=== PATIENT | male | born 1965 ===

== ENCOUNTER 2017-01-02 06:52 | Inpatient (IN) | payer OTHER ==
[2017-01-02] MEDS: PROPOFOL/EMULSION 100 ML IV SCH ×3 (10:10→23:11)
[2017-01-02] MEDS: fentaNYL/NACL 100 ML IV SCH ×2 (10:10→19:17)
[2017-01-02] MEDS ORDERED: PROPOFOL/EMULSION 1,000 MG/100 ML BOTTLE IV ONE (10:12)
[2017-01-02] MEDS ORDERED: fentanYL/NACL/100 ML BAG IV ONE (10:13)
--- NOTE | 2017-01-02 10:52 | SOAPPROG ---
SOAP Progress Note Assessment/Plan: Assessment: 51yo with intracranial bleed in need for georgie Plan: georgie placed to left radial artery no complications noted secured with suture and tape 01/02/17 10:48 Objective: Vital Signs Temp Pulse Resp BP Pulse Ox 37.2 C 69 14 102/66 97 01/02/17 10:33 01/02/17 10:33 01/02/17 10:33 01/02/17 10:33 01/02/17 10:33 01/01/17 01/02/17 01/03/17 05:59 05:59 05:59 Output Total 20 Balance -20 seen - Pending Discharge Pending Discharge Within 24 Hours: No Pending Discharge Within 48 Hours: No Physical Exam - Physical Exam General Appearance: obese EENT: other Neck: other Respiratory: other Cardiac/Chest: other ICD10 Worksheet Patient Problems: Problems Problem Status Onset Intracranial bleeding Acute - ICD10 Problem Qualifiers (1) Intracranial bleeding
[2017-01-02 11:05] LABS: BASE EXCESS -4.8 mEq/L (-2.5-2.5); BICARBONATE 21 mEq/L (22-26); MEASURED OXYGEN SATURATION 98 % (92-95); PCO2 42 mmHg (34-38); PO2 116 mmHg (65-75); TCO2 22 mEq/L (23-27)
[2017-01-02 11:08] LABS: % IMMATURE GRANULYOCYTES 0.8 % (0.0-1.1); ABSOLUTE IMMATURE GRANULOCYTES 0.15 10^3/uL (0.00-0.10); ADD DIFF? NO; ADD MORPH? NO; ADD SCAN? NO; ATYPICAL LYMPHOCYTE FLAG 0 (0-99); FRAGMENT RBC FLAG 0 (0-99); HEMATOCRIT 53.4 % (40.0-51.0); HEMOGLOBIN 18.9 g/dL (13.7-17.5); LEFT SHIFT FLG 0 (0-99); LIPEMIA HEMOLYSIS FLAG 90 (0-99); MEAN CELL HEMOGLOBIN 30.5 pg (27.9-34.1); MEAN CELL HEMOGLOBIN CONCENTR. 35.4 g/dL (32.4-36.7); MEAN CELL VOLUME 86.1 fL (81.5-99.8); MEAN PLATELET VOLUME 9.3 fL (8.7-11.7); PLATELET CLUMPS FLAG 0 (0-99); PLATELET COUNT 246 10^3/uL (150-400); RED CELL DISTRIBUTION WIDTH 13.7 % (11.5-15.2)
[2017-01-02 11:12] LABS: END TIDAL CO2 29
[2017-01-02 11:13] LABS: ASSIST CONTROL YES
[2017-01-02 11:14] LABS: O2 CONCENTRATIION 100 % (0-100); P/F RATIO 116 RATIO; TOTAL RATE 14
[2017-01-02 11:16] LABS: INR 1.01 (0.83-1.16); PROTIME(PATIENT) 13.2 SEC (12.0-15.0)
[2017-01-02 11:28] LABS: ALANINE AMINOTRANSFERASE 65 IU/L (21-72); ALBUMIN 3.8 g/dL (3.5-5.0); ALKALINE PHOSPHATASE 82 IU/L (38-126); ANION GAP 15 mEq/L (8-16); ASPARTATE AMINOTRANSFERASE 57 IU/L (17-59); BILIRUBIN,TOTAL 0.8 mg/dL (0.1-1.4); CALCIUM 9.3 mg/dL (8.5-10.4); CARBON DIOXIDE 19 mEq/l (22-31); CHLORIDE 108 mEq/L (97-110); CREATININE 1.7 mg/dL (0.7-1.3); GLOMERULAR FILTRATION RATE 42; GLUCOSE 151 mg/dL (70-100); POTASSIUM 4.7 mEq/L (3.5-5.2); SODIUM 142 mEq/L (134-144); TOTAL PROTEIN 6.3 g/dL (6.3-8.2)
--- NOTE | 2017-01-02 11:31 | CPEKG ---
Heart Rate: 64 RR Interval: 938 P-R Interval: 196 QRSD Interval: 90 QT Interval: 496 QTC Interval: 512 P Rugby: 66 QRS Rugby: 230 T Wave Rugby: 172 EKG Severity - ABNORMAL ECG - EKG Impression: SINUS RHYTHM EKG Impression: MARKEDLY POSTERIOR QRS AXIS EKG Impression: LOW VOLTAGE IN FRONTAL LEADS EKG Impression: CONSIDER ANTEROSEPTAL INFARCT EKG Impression: ABNORMAL T, PROBABLE ISCHEMIA, ANT-LAT LEADS EKG Impression: PROLONGED QT INTERVAL EKG Impression: right atrial enlargement noted. Electronically Signed By: Lux Mcdonald 03-Jan-2017 08:49:28
[2017-01-02 12:01] LABS: TROPONIN I 0.934 ng/mL (0.000-0.034)
[2017-01-02] MEDS ORDERED: fentaNYL 100 MCG/2 ML INJ IVP PRN (12:08)
[2017-01-02] MEDS: niMODipine 30 MG/0.9 ML UDL TUBE SCH ×3 (13:23→22:01)
[2017-01-02] MEDS: niCARdipine/NACL 200 ML IV SCH ×2 (13:23→13:24)
[2017-01-02] MEDS ORDERED: PROPOFOL/EMULSION 500 MG/50 ML BOTTLE IV ONE ×2 (14:35→17:23)
[2017-01-02] MEDS ORDERED: fentaNYL 100 MCG/2 ML INJ ONE ×2 (14:35→17:32)
[2017-01-02] MEDS ORDERED: IOPAMIDOL (ISOVUE-300) 100 ML BTL ONE ×2 (14:40→19:11)
--- NOTE | 2017-01-02 14:50 | GCON ---
[f rep st] CONSULTATION CARDIOLOGY CONSULTATION DATE OF CONSULTATION: 01/02/2017 REASON FOR CONSULTATION: Evaluation of abnormal ECG with diffuse T-wave inversion and QT prolongation, coupled with elevated troponin in the setting of a known history of coronary artery disease and previous myocardial infarction. HISTORY OF PRESENT ILLNESS: The patient is a pleasant 51-year-old gentleman, who presented to outside hospital after being found unresponsive at home. 911 was notified. He was brought to [facility], where CT of the head demonstrated subarachnoid hemorrhage. He presents to [facility] for neurosurgery in the setting of subarachnoid hemorrhage. Upon his arrival here he underwent ECG, which demonstrated sinus rhythm with prolonged Q-T interval of 512 milliseconds, with diffuse deep T-wave inversions. There is also poor R-wave progression and posterior axis of his ECG. I do not have previous ECG for comparison. I do have interpreted results without image of the ECG, which identifies a QTc corrected of 495 milliseconds via Bazett formula. Currently, at the time of my evaluation he is intubated and sedated. I was asked to see him to assess ECG abnormality in the setting of a gentleman with known history of coronary artery disease and multiple risk factors. At the time of this evaluation, he was undergoing stat echocardiogram. Preliminary review of the images demonstrates LVEF of approximately 50%. I do not have previous records to review at this time, but I do know he has old history of myocardial infarction. PAST MEDICAL HISTORY: Hypertension, hyperlipidemia, paroxysmal atrial fibrillation, coronary artery disease with previous history of myocardial infarction, chronic renal insufficiency, thyroid disease, and essential hypertension. MEDICATIONS: On admission include allopurinol 100 mg daily, amlodipine 10 mg daily, Coreg 25 mg p.o. b.i.d., lisinopril 20 mg daily, potassium chloride 10 mEq daily and Zocor 20 mg daily. ALLERGIES: He has no allergies to medications. SOCIAL HISTORY: He is , he has children. He is a former smoker. FAMILY HISTORY: Noncontributory. PHYSICAL EXAMINATION: GENERAL: He is intubated and sedated. VITAL SIGNS: Blood pressure 114/79, heart rate is 77 in sinus rhythm, respiratory rate of 14 , oxygen saturation 92% on ventilator at 90% FiO2. CARDIAC: S1, S2. Regular rate and rhythm. No murmurs, rubs, or gallops. PMI is not displaced. ABDOMEN : Soft. Bowel sounds are present. EXTREMITIES: There is no evidence of cyanosis, clubbing or edema. LUNGS: Coarse breath sounds bilaterally. DATA: White blood cell count 19.96, hemoglobin 18.9, hematocrit 53.4, platelet count 246. INR 1.01. Sodium 142, potassium 4.7, chloride 108, bicarb 19, BUN 17, creatinine 1.7, glucose 151, AST 57, ALT 65 alkaline phosphatase 82, troponin 0.934. ECG: Sinus rhythm at 64 beats per minute with prolonged QT interval corrected at 512 milliseconds via Bazett formula with diffuse deep T-wave inversions. No previous ECG for comparison. Preliminary echo results: LVEF of approximately 50%. SUMMARY: The patient is a 51-year-old gentleman with multiple medical comorbidities, who was found unresponsive earlier today. Transferred to [facility] where he was found to have a large intracranial subarachnoid hemorrhage, prompting transfer to [facility] for further neurosurgical evaluation and treatment. In reviewing his ECG, I think his findings are most consistent with elevated intracranial pressure with prolonged Q-T interval and diffuse T-wave inversions. I do not think this represents acute infarction. He did have evidence of atrial fibrillation with rapid ventricular response at outside hospital, in reviewing his records. He may have developed some demand ischemia in the setting of acute intracranial hemorrhage, coupled with atrial fibrillation with rapid ventricular rate. I do not think that this represents acute infarction at this time, and I do not see any contraindication to pursuing neurologic workup or treatment at this time. 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 North. Will attempt to contact Dr. North directly and obtain records. I have asked my office to track him down and call me on my cell phone. PLAN: 1. Will monitor serial cardiac enzymes. 2. Obtain outside records including ECG and echocardiogram reports. 3. Continue current cardiac medications. 4. Will continue to follow along with his care. 45 min spent coordinating care /[id number]/MODL MTDD
[2017-01-02] MEDS ORDERED: ALTEPLASE 2 MG VIAL IVP PRN (15:16)
--- NOTE | 2017-01-02 18:01 | GCON ---
[f rep st] CONSULTATION REFERRING PROVIDER IS DR. DILAN ARAUJO. DATE OF CONSULTATION: 01/02/2017 Pulmonary/critical care consultation. REASON FOR REFERRAL: Evaluation and management of respiratory failure. HISTORY: The patient is a 51-year-old male with a history of paroxysmal atrial fibrillation, chronic renal insufficiency, and myocardial infarction, who was brought to [facility] after darnell ng found unresponsive. He was found to have a subarachnoid hemorrhage. He was intubated and had dif ficulty with atrial fibrillation, with a rapid ventricular response. He was transferred here for end ovascular therapy by Dr. Araujo. On arrival, he was intubated, and his oxygen saturations were in the low 90s on 100% oxygen. PAST MEDICAL HISTORY: 1. Hypertension. 2. Paroxysmal atrial fibrillation. 3. Coronary artery disease, status post CT. 4. Chronic renal insufficiency. 5. Thyroid disease. MEDICATIONS: At the time of admission included allopurinol, amlodipine, Coreg, lisinopril, potassium , and Zocor. ALLERGIES: None. SOCIAL HISTORY: The patient is and has children. He is a former smoker. FAMILY HISTORY: Unremarkable. REVIEW OF SYSTEMS: A 10-point review of systems is unobtainable. PHYSICAL EXAMINATION: GENERAL: The patient is intubated and sedated. VITAL SIGNS: Blood pressure is 138/86, with a heart rate of 67. He is afebrile. Oxygen saturation is now 97% on 100% oxygen. H EENT: Normocephalic and atraumatic. No icterus. NECK: No adenopathy. Trachea is midline. CHEST: A few rales in the right base. CARDIAC: Regular rate and rhythm, without murmur. ABDOMEN: Soft, nontender. Bowel sounds are present. NEUROLOGIC: The patient is intubated, sedated, and unrespons june. He has no spontaneous movement. Pupils are mid position and sluggish. LABORATORY: White blood count is 20.0, with a hemoglobin of 18.9. Creatinine is 1.7. Troponin is 0 .93. An arterial blood gas shows a pH of 7.32, with a pO2 of 116, a CO2 of 42, a bicarbonate of 22, an IMV with a rate of 14, and a tidal volume of 600, 100% oxygen. ECG shows a posterior axis, with prolonged QT interval and inverted T-waves in the precordial leads. Reviewed by me. IMAGING: A chest x-ray shows some right greater than left alveolar infiltrates. The endotracheal tu be is appropriately placed. Images were reviewed. ASSESSMENT: 1. 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 Dr. Araujo is plann ing on taking the patient to the interventional lab for definitive treatment. 2. Hypoxemic respiratory failure. The cause of the patient's significant hypoxemia is unknown, but it is improving somewhat with increasing the PEEP to 10, as well as some Lasix, although he has not h ad very much urine output since he arrived. 3. EKG changes and elevated troponins. This could be due to the patient's subarachnoid hemorrhage, but an acute coronary syndrome cannot be excluded. 4. Renal insufficiency. The patient has modest urine output and an elevated creatinine. RECOMMENDATIONS: 1. Continue to try to wean down oxygen as tolerated. 2. Check stat echocardiogram and consult Dr. Mejia regarding ECG and elevated troponin. 3. Give fluid bolus prior to going to the interventional suite, as he will be receiving a second dye load and is at risk for ATN. 50 minutes of critical care time evaluating and treating the patient for his significant hypoxemia an d concern for acute myocardial infarction. /[id number]/MODL
--- NOTE | 2017-01-02 18:45 | ECHO ---
[email or web address] [address] [address] Main: [phone] Fax: Transthoracic Echocardiogram Name: JOHN CHEEK MR#: [id number] Study Date: 01/02/2017 Study Time: 12:25 PM Date of : 1965 Age: 51 year(s) Height: 182.9 cm (72 in.) Weight: 114.76 kg (253 lb.) BSA: 2.35 m2 Gender: Male Examination: Echo Indication: Abnormal EKG, Patient found down, HTN, Hx of [place] in past Image Quality: Contrast: Requested by: Trevor Martinez BP: 108 mmHg/75 mmHg Heart Rate: Rhythm: Indication: Abnormal EKG, Patient found down, HTN, Hx of [place] in past Procedure Staff Medical I D Sales: Valentin Montoya Reading Physician: Bernard Mejia Requesting Provider: Conclusions: Normal size left ventricle. Moderate to Severe concentric LV hypertrophy. Low normal left ventricular systolic function. The ejection fraction is estimated to be 50 %. There is mid to distal anteroseptal hypokinesis. Normal size right ventricle. Normal RV function. Trivial tricuspid valve regurgitation. Measurements: Chambers Valvular Assessment AV/MV Valvular Assessment TV/PV Normal Normal Normal Name Value Range Name Value Range Name Value Range Ao Miriam (MM): 3.6 cm (2.2 cm-3.7 AV Vmax: 0.96 m/s (1 m/s-1.7 TR Vmax: 2.38 mm/s ( - ) cm) m/s) TR PGmax: 23 mmHg ( - ) IVSd (2D): 1.6 cm (0.6 cm-1.1 AV maxP mmHg ( - ) PV Vmax: 0.62 m/s (0.6 m/s-0.9 cm) LVOT Vmax: 0.71 m/s (0.7 m/s-1.1 m/s) LVDd (2D): 3.7 cm (4.2 cm-5.9 m/s) PV PGmax: 2 mmHg ( - ) cm) MV E Vmax: 0.35 m/s ( - ) LVDs (2D): 2.2 cm (2.1 cm-4 MV A Vmax: 0.48 m/s ( - ) cm) MV E/A: 0.73 ( - ) LVPWd (2D): 1.3 cm (0.6 cm-1 cm) LVEF (MOD4): 48 % (>=55 %) EF Range: 50 % RVDd(2D): 2.8 cm (1.9 cm-3.8 cmmm) Continued Measurements: Patient: JOHN CHEEK Study Date: 01/02/2017 Page 1 of 2 12:25 PM Valvular Assessment AV/MV Name Value MV DecTime: 187 m/s Findings: Left Ventricle: Normal size left ventricle. Moderate to Severe concentric LV hypertrophy. Low normal left ventricular systolic function. The ejection fraction is estimated to be 50 %. There is mid to distal anteroseptal hypokinesis. Right Ventricle: Normal size right ventricle. Normal RV function. Left Atrium: The left atrium is normal in size. Right Atrium: The right atrium is normal in size. Mitral Valve: The mitral valve is normal in appearance and function. Trivial mitral valve regurgitation. Aortic Valve: The aortic valve is normal in appearance and function. The aortic valve is tri-leaflet. There is no aortic valve regurgitation. No aortic valve stenosis is present. Tricuspid Valve: The tricuspid valve is normal in appearance and function. Trivial tricuspid valve regurgitation. Pulmonic Valve: The pulmonic valve is normal in appearance and function. Aorta: The aorta is normal. Normal size aortic root measuring 3.6 cm. Pericardium: No pericardial effusion. There is pericardial fat. (No Signature Object) Patient: JOHN CHEEK Study Date: 01/02/2017 Page 2 of 2 12:25 PM [id number]
[2017-01-02] MEDS ORDERED: NS W/ 20 KCl/L 1,000 ML IV SCH (20:00)
[2017-01-02] MEDS: SODIUM Cl 3% 500 ML IV SCH (20:06)
[2017-01-02] MEDS: levETIRAcetam 750 MG in NS 100 ML IV SCH (21:34)
[2017-01-03] MEDS: niMODipine 30 MG/0.9 ML UDL TUBE SCH ×6 (02:11→21:54)
[2017-01-03 03:21] LABS: ASSIST CONTROL YES; BASE EXCESS -3.7 mEq/L (-2.5-2.5); BICARBONATE 21 mEq/L (22-26); MEASURED OXYGEN SATURATION 96 % (92-95); O2 CONCENTRATIION 60 % (0-100); P/F RATIO 140 RATIO; PCO2 41 mmHg (34-38); PO2 84 mmHg (65-75); TCO2 23 mEq/L (23-27)
[2017-01-03 03:22] LABS: END TIDAL CO2 30; TOTAL RATE 16
[2017-01-03 03:23] LABS: % IMMATURE GRANULYOCYTES 0.4 % (0.0-1.1); ABSOLUTE IMMATURE GRANULOCYTES 0.06 10^3/uL (0.00-0.10); ADD DIFF? NO; ADD MORPH? NO; ADD SCAN? NO; ATYPICAL LYMPHOCYTE FLAG 0 (0-99); FRAGMENT RBC FLAG 0 (0-99); HEMATOCRIT 45.8 % (40.0-51.0); HEMOGLOBIN 15.7 g/dL (13.7-17.5); LEFT SHIFT FLG 0 (0-99); LIPEMIA HEMOLYSIS FLAG 90 (0-99); MEAN CELL HEMOGLOBIN 30.1 pg (27.9-34.1); MEAN CELL HEMOGLOBIN CONCENTR. 34.3 g/dL (32.4-36.7); MEAN CELL VOLUME 87.9 fL (81.5-99.8); MEAN PLATELET VOLUME 9.4 fL (8.7-11.7); PLATELET CLUMPS FLAG 0 (0-99); PLATELET COUNT 170 10^3/uL (150-400); RED BLOOD CELL COUNT 5.21 10^6/uL (4.40-6.38); RED CELL DISTRIBUTION WIDTH 13.8 % (11.5-15.2)
[2017-01-03] MEDS: PROPOFOL/EMULSION 100 ML IV SCH ×3 (03:26→14:25)
[2017-01-03 03:36] LABS: ALANINE AMINOTRANSFERASE 51 IU/L (21-72); ALBUMIN 2.6 g/dL (3.5-5.0); ALKALINE PHOSPHATASE 67 IU/L (38-126); ANION GAP 9 mEq/L (8-16); ASPARTATE AMINOTRANSFERASE 27 IU/L (17-59); BILIRUBIN,TOTAL 0.6 mg/dL (0.1-1.4); CALCIUM 8.6 mg/dL (8.5-10.4); CARBON DIOXIDE 23 mEq/l (22-31); CHLORIDE 115 mEq/L (97-110); CREATININE 1.6 mg/dL (0.7-1.3); GLOMERULAR FILTRATION RATE 45; GLUCOSE 126 mg/dL (70-100); MAGNESIUM 1.9 mg/dL (1.6-2.3); POTASSIUM 4.4 mEq/L (3.5-5.2); SODIUM 147 mEq/L (134-144); TOTAL PROTEIN 5.2 g/dL (6.3-8.2)
[2017-01-03 03:47] LABS: TROPONIN I 0.301 ng/mL (0.000-0.034)
[2017-01-03] MEDS: fentaNYL/NACL 100 ML IV SCH ×2 (06:23→21:54)
[2017-01-03] MEDS: levETIRAcetam 750 MG in NS 100 ML IV SCH ×2 (08:02→21:54)
--- NOTE | 2017-01-03 08:51 | NEUSURGPN ---
Assessment/Plan: Assessment: 51 yo male with altered MS and diffuse SAH. Ventric placed at [facility] and transferred to [facility] for treatment of what was thought to be a ruptured right PICA aneurysm but angiogram showed dissecting right vertebral artery. Plan: -Neuro: right pupil remains fixed,left pupil smaller and brisk, will wean off sedation more today to try and get better exam -hiccups- monitor, could try thorazine if desired later but will watch for now -Continue SBP goal of 90-160(closer to 160 preferred) -Continue Nimotop for Vasospasm -Continue Keppra 750mg BID -Continue ventric open at 5 -Head CT this am done early due to high ICPs and is stable -ICPs elevated >20 so HOB increased to 60degrees and ventric flushed distally and improved to 12. May resume HOB at 30 if tolerated S: Unable to obtain. Chart reviewed and events overnight reviewed with RN. O: VSS- BP 136/86 currently Intubated, sedated Right pupil 5-6mm and non-reactive left pupil 2mm and briskly reactive Not following any commands currently- will wean sedation to try and get better exam Ventric site clean- functioning Catheter Insertion Date: 01/02/17 - Physician Discussed Patient with : Tyrone Patient Seen by : Tyrone Neurosurgery Physical Exam - Vitals, I&O, Labs I and O 01/02/17 01/03/17 01/04/17 05:59 05:59 05:59 Intake Total 745.5 50 Output Total 2136 26 Balance -1390.5 24 Weight 122 kg Intake: IV Intake (ml) 180 IV Infused (ml) 485.5 NS W/ 20 KCl/L 1,000 ml @ 117 125 mls/hr IV CONT KADEN Rx#:[id number] Propofol/Emulsion 100 ml 28.9 @ Per Protocol IV CONT KADEN Rx#:[id number] SODIUM Cl 3% 500 ml @ 30 273 mls/hr IV CONT KADEN Rx#: [id number] fentaNYL/NACL 100 ml @ 66.6 Per Protocol IV CONT KADEN Rx#:[id number] Tube Flush (ml) 80 50 Output: Urine (ml) 1943 Catheter 1943 CSF Drainage Amount 193 26 Right Ventriculostomy 1 193 26 Vital Signs Temp Pulse Resp BP Pulse Ox 36.6 C 61 20 142/79 H 99 11/09/17 07:00 01/03/17 08:15 01/03/17 08:15 01/03/17 08:00 01/03/17 08:15 Laboratory Results 01/03/17 03:10 01/03/17 03:10 ICD10 Worksheet Patient Problems: Problems Problem Status Onset Intracranial bleeding Acute
[2017-01-03] MEDS: BACITRACIN OINTMENT 1 PACKET TP SCH ×2 (10:12→21:54)
--- NOTE | 2017-01-03 11:30 | PDINTPN ---
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 Cardiomyopathy: Small regional wall motion abnormality, ?old vs related to ICH. Vitals OK, troponins down Respiratory failure: O2 needs still high but down to 60%. Atelectasis likely, possible aspiration may contribute. Nutrition: None for over 48 hours Plan: Try changing to Precedex. Continue vent for now. Maintain BP in high normal-mildly elevated range for the time being. Nicardipine PRN hypertension. 01/03/17 11:35 Subjective: Intubated, sedated. Intermittently agitated, not following commands. Objective: Vital Signs Temp Pulse Resp BP Pulse Ox 36.6 C 52 L 16 141/72 H 97 01/03/17 07:00 01/03/17 10:00 01/03/17 10:00 01/03/17 10:00 01/03/17 09:00 Laboratory Results 01/03/17 03:10 01/03/17 09:15 01/02/17 01/03/17 01/04/17 05:59 05:59 05:59 Intake Total 745.5 80 Output Total 2136 211 Balance -1390.5 -131 PT 13.2 SEC (12.0-15.0) 01/02/17 10:55 INR 1.01 (0.83-1.16) 01/02/17 10:55 Laboratory Tests 01/03/17 03:10 pCO2 41 H pO2 84 H Total CO2 23 ABG pH 7.34 L ABG HCO3 21 L O2 Concentration % 60 Respiration Rate 16 Set Respiration Rate 14 Assist Control YES Tidal Volume 600 End Tidal CO2 30 PEEP 8 Physical Exam - Physical Exam General Appearance: No alert EENT: No normal ENT inspection (ventric drain) Neck: normal inspection Respiratory: lungs clear, normal breath sounds, respiratory distress Cardiac/Chest: regular rate, rhythm, No edema Abdomen: normal bowel sounds, non-tender, soft Skin: normal color, warm/dry Extremities: normal inspection Neuro/Psych: motor weakness (left), No alert ICD10 Worksheet Patient Problems: Problems Problem Status Onset Intracranial bleeding Acute
[2017-01-03] MEDS ORDERED: DEXMEDETOMIDINE HCL 400 MCG in NS 100 ML IV SCH (12:00)
--- NOTE | 2017-01-03 12:06 | ASMTCASEMG ---
Living Arrangements What is your living Answers: With Spouse arrangement? Who do you live with? Type Of Residence What kind of residence do Answers: House you live in? Discharge Plan Comments Coordination Status Comments Notes: Patient is a 51yo caucasion male who was admitted for a ruptured aneurysm. His daughters are Norma and La. Patient is and living with his , Darrian. PT, BODY TECHNICIAN, Inpatient Rehab, and cardiac rehab have been ordered. Will await therapy recommendations for d/c planning. CM will follow. Date Signed: 01/03/2017 12:06 PM Electronically Signed By:Jacquelin Jarquin LCSW
[2017-01-03] MEDS: SODIUM Cl 3% 500 ML IV SCH (12:10)
--- NOTE | 2017-01-03 15:08 | PDCARPN ---
Cardiology Progress Note Assessment/Plan: Assessment: 1. Vertebral Artery dissection 2. ECG changes c/w increased ICP 3. Hx of CAD and prior CO 4. LVEF 50% 5. HTN Plan: -continue current management -will continue to follow ECG and rhythm 01/03/17 15:09 Subjective: 51 year old gentleman found unresponsive found to have vertebral artery dissedtion with coil yesterday. He has known hx of cad. Trop mildly elevated yesterday, trending down. ECG changes of TWi and QTc prlongation coupled with bradyccardia are findings c/w increased ICP. Sinus rhythm to sinus prashant on tele. No pauses. LVEF 50%. Permissive Hypertension. Reviewed/Discussed With: multidisciplinary team Time Spent With Patient: 15 minutes Objective: Vital Signs (8 Hrs) Temp Pulse Resp BP Pulse Ox 01/03/17 14:00 72 18 174/79 H 94 01/03/17 12:59 77 19 167/94 H 97 01/03/17 11:59 36.7 C 85 21 H 156/96 H 92 01/03/17 11:40 74 20 89 L 01/03/17 11:00 68 16 170/88 H 96 01/03/17 10:00 52 L 16 141/72 H 01/03/17 09:00 52 L 16 142/75 H 97 01/03/17 08:15 61 20 99 01/03/17 08:00 58 L 16 142/79 H 99 Intake/Output (24 Hrs) 01/02/17 01/03/17 01/04/17 05:59 05:59 05:59 Intake Total 745.5 738 Output Total 2136 851 Balance -1390.5 -113 Intake: Oral (ml) 30 IV Intake (ml) 180 IV Infused (ml) 485.5 628 NS W/ 20 KCl/L 1,000 ml @ 117 133 125 mls/hr IV CONT KADEN Rx#:[id number] Propofol/Emulsion 100 ml 28.9 94 @ Per Protocol IV CONT KADEN Rx#:[id number] SODIUM Cl 3% 500 ml @ 30 273 192 mls/hr IV CONT KADEN Rx#: [id number] fentaNYL/NACL 100 ml @ 66.6 34 Per Protocol IV CONT KADEN Rx#:[id number] levETIRAcetam 750 mg In 107 Ns 100 ml @ 420 mls/hr IV BID KADEN Rx#:[id number] niCARdipine/NACL 200 ml @ 68 Titrate IV CONT KADEN Rx#: [id number] Tube Flush (ml) 80 80 Output: Urine (ml) 1943 755 Catheter 1943 755 CSF Drainage Amount 193 96 Right Ventriculostomy 1 193 96 Other: Weight 122 kg 125 kg Result Diagrams: 01/03/17 03:10 01/03/17 09:15 Cardiac Labs: Cardiac Lab Results (72 Hrs) 01/03/17 01/02/17 03:10 10:55 Troponin I 0.301 H 0.934 H - Physical Exam Constitutional: other Cardiovascular: regular rate and rhythm, no murmurs, no rubs, no gallops Respiratory: clear to auscultate bilat (Intubated, sedated ) ICD10 Worksheet Patient Problems: Problems Problem Status Onset Intracranial bleeding Acute
[2017-01-03] MEDS: DEXMEDETOMIDINE IN 0.9 % NACL 100 ML IV SCH ×3 (16:06→21:54)
[2017-01-03 16:46] LABS: BASE EXCESS -3.3 mEq/L (-2.5-2.5); BICARBONATE 20 mEq/L (22-26); MEASURED OXYGEN SATURATION 93 % (92-95); PCO2 33 mmHg (34-38); PO2 66 mmHg (65-75); TCO2 21 mEq/L (23-27)
[2017-01-03 16:48] LABS: ASSIST CONTROL YES; END TIDAL CO2 24; P/F RATIO 110 RATIO
[2017-01-03 16:49] LABS: O2 CONCENTRATIION 60 % (0-100)
[2017-01-04] MEDS: DEXMEDETOMIDINE IN 0.9 % NACL 100 ML IV SCH ×4 (00:04→06:19)
[2017-01-04] MEDS: niCARdipine/NACL 200 ML IV SCH (01:59)
[2017-01-04] MEDS: niMODipine 30 MG/0.9 ML UDL TUBE SCH ×6 (01:59→21:51)
[2017-01-04 03:37] LABS: ANION GAP 11 mEq/L (8-16); CARBON DIOXIDE 21 mEq/l (22-31); CHLORIDE 120 mEq/L (97-110); CREATININE 1.4 mg/dL (0.7-1.3); GLOMERULAR FILTRATION RATE 53; GLUCOSE 138 mg/dL (70-100); POTASSIUM 4.1 mEq/L (3.5-5.2); SODIUM 152 mEq/L (134-144)
[2017-01-04 03:49] LABS: TROPONIN I 0.099 ng/mL (0.000-0.034)
[2017-01-04] MEDS: SODIUM Cl 3% 500 ML IV SCH (04:09)
[2017-01-04 05:12] LABS: BASE EXCESS -3.3 mEq/L (-2.5-2.5); BICARBONATE 21 mEq/L (22-26); MEASURED OXYGEN SATURATION 95 % (92-95); PCO2 35 mmHg (34-38); PO2 74 mmHg (65-75); TCO2 22 mEq/L (23-27)
[2017-01-04 05:15] LABS: ASSIST CONTROL YES
[2017-01-04 05:16] LABS: END TIDAL CO2 27; O2 CONCENTRATIION 60 % (0-100); P/F RATIO 123 RATIO; TOTAL RATE 16
[2017-01-04] MEDS ORDERED: ATROPINE SULFATE 1 MG/10 ML SYR ONE ×2 (06:34→09:39)
[2017-01-04] MEDS ORDERED: ALBUTEROL 3 ML DEYVIAL ONE (06:44)
[2017-01-04] MEDS ORDERED: ATROPINE SULFATE 1 MG/10 ML SYR IVP ONE (07:02)
--- NOTE | 2017-01-04 07:10 | NEUSURGPN ---
Date of Surgery: 01/02/17 Post Op Day: 2 Assessment/Plan: Assessment: 51 yo male with altered MS and diffuse SAH. Ventric placed at [facility] and transferred to [facility] for treatment of what was thought to be a ruptured right PICA aneurysm but angiogram showed dissecting right vertebral artery. Plan: -Neuro: right pupil 4-5 sluggish,left pupil 2-3 and sluggish, patient violently moving BUE, BLE on max Precedex. Ok to start Propofol per NS if needed -May increase SBP goal to of 90-180 -Continue Nimotop for Vasospasm -Continue Keppra 750mg BID -Continue ventric open at 5 -ICPs 13-14, with average output 10ml/hr -ICPs elevated >20 so HOB increased to 60degrees and ventric flushed distally and improved to 12. May resume HOB at 30 if tolerated -Na 152 this am, will turn off 3% and recheck Na at 0900 -Patient will get transcranial doppler study at bedside later today, neuromonitoring tech aware and coming -Discussed with Dr Hansen Subjective: Unable to obtain Objective: Intubated, moving extremities x4 with 5/5 strength Right pupil 4-5mm and non-reactive left pupil 2-2 sluggish, right 4-5 sluggish Ventric CDI- functioning Neuro Check Frequency: per routine Urinary Catheter in Place: Yes Urinary Catheter Indication: Accurate I & O Required Catheter Insertion Date: 01/02/17 - Physician Discussed Patient with : Tyrone Neurosurgery Physical Exam - Vitals, I&O, Labs I and O 01/03/17 01/04/17 01/05/17 05:59 05:59 05:59 Intake Total 745.5 2512.1 Output Total 2136 2316 11 Balance -1390.5 196.1 -11 Weight 122 kg 123.5 kg 122.3 kg Intake: Oral (ml) 30 IV Intake (ml) 180 141 IV Infused (ml) 485.5 2171.1 Dexmedetomidine in 0.9 % 560 NaCl 100 ml @ Per Protocol IV CONT KADEN Rx#: [id number] NS W/ 20 KCl/L 1,000 ml @ 117 228 125 mls/hr IV CONT KADEN Rx#:[id number] Propofol/Emulsion 100 ml 28.9 176 @ Per Protocol IV CONT KADEN Rx#:[id number] SODIUM Cl 3% 500 ml @ 30 273 732 mls/hr IV CONT KADEN Rx#: [id number] fentaNYL/NACL 100 ml @ 66.6 172 Per Protocol IV CONT KADEN Rx#:[id number] levETIRAcetam 750 mg In 107 Ns 100 ml @ 420 mls/hr IV BID KADEN Rx#:[id number] niCARdipine/NACL 200 ml @ 196.1 Titrate IV CONT KADEN Rx#: [id number] Tube Flush (ml) 80 170 Output: Urine (ml) 1942 2069 Catheter 1942 2069 CSF Drainage Amount 193 246 11 Right Ventriculostomy 1 193 246 11 Other: Number of Stools Catheter 0 Vital Signs Temp Pulse Resp BP Pulse Ox 36.9 C 56 L 16 153/86 H 966 H 01/04/17 06:00 01/04/17 06:00 01/04/17 06:00 01/04/17 06:00 01/04/17 06:00 Laboratory Results 01/03/17 03:10 01/04/17 03:10 ICD10 Worksheet Patient Problems: Problems Problem Status Onset Intracranial bleeding Acute
[2017-01-04] MEDS: PROPOFOL/EMULSION 100 ML IV SCH ×2 (07:14→10:42)
[2017-01-04] MEDS: fentaNYL/NACL 100 ML IV SCH ×2 (07:20→20:54)
[2017-01-04] MEDS ORDERED: ATROPINE SULFATE 1 MG/ML VIAL IVP ONE (07:30)
[2017-01-04] MEDS: BACITRACIN OINTMENT 1 PACKET TP SCH ×2 (08:06→20:36)
[2017-01-04] MEDS: levETIRAcetam 750 MG in NS 100 ML IV SCH ×2 (08:06→20:36)
[2017-01-04] MEDS: ACETAMINOPHEN 650 MG/20.3 ML UDCUP TUBE PRN (10:07)
--- NOTE | 2017-01-04 11:41 | PDCARPN ---
Cardiology Progress Note Assessment/Plan: Assessment: 1. Vertebral Artery dissection 2. ECG changes c/w increased ICP 3. Hx of CAD and prior NM 4. LVEF 50% 5. HTN Plan: -No change in care plan -will sign off, call with questions 01/03/17 15:09 01/04/17 11:43 Subjective: Mr. Troncoso remains intubated and sedated. ECG continues to demonstrate sinus prashant. TWI and QT prolongation persists in the setting of elevated ICP. Troponin has trended downfrom 0.934 to 0.301 to 0.099. Echo with LVEF of 50%. Reviewed/Discussed With: family, multidisciplinary team Time Spent With Patient: 15 min Objective: Vital Signs (8 Hrs) Temp Pulse Resp BP Pulse Ox 01/04/17 11:00 37.7 C 56 L 16 147/77 H 98 01/04/17 09:58 37.4 C 60 16 161/86 H 97 01/04/17 09:00 37.1 C 01/04/17 08:58 36.8 C 66 18 127/88 H 96 01/04/17 08:15 69 18 96 01/04/17 08:00 36.6 C 65 18 125/97 H 95 01/04/17 07:08 89 94 01/04/17 07:04 36.5 C 78 17 136/76 H 96 01/04/17 06:00 36.9 C 56 L 16 153/86 H 966 H 01/04/17 04:57 37 C 57 L 16 161/91 H 96 01/04/17 04:15 56 L 16 94 01/04/17 03:58 37 C 56 L 16 140/101 H 96 Intake/Output (24 Hrs) 01/03/17 01/04/17 01/05/17 05:59 05:59 05:59 Intake Total 745.5 2512.1 Output Total 2136 2316 330 Balance -1390.5 196.1 -330 Intake: Oral (ml) 30 IV Intake (ml) 180 141 IV Infused (ml) 485.5 2171.1 Dexmedetomidine in 0.9 % 560 NaCl 100 ml @ Per Protocol IV CONT KADEN Rx#: [id number] NS W/ 20 KCl/L 1,000 ml @ 117 228 125 mls/hr IV CONT KADEN Rx#:[id number] Propofol/Emulsion 100 ml 28.9 176 @ Per Protocol IV CONT KADEN Rx#:[id number] SODIUM Cl 3% 500 ml @ 30 273 732 mls/hr IV CONT KADEN Rx#: [id number] fentaNYL/NACL 100 ml @ 66.6 172 Per Protocol IV CONT KADEN Rx#:[id number] levETIRAcetam 750 mg In 107 Ns 100 ml @ 420 mls/hr IV BID KADEN Rx#:[id number] niCARdipine/NACL 200 ml @ 196.1 Titrate IV CONT KADEN Rx#: [id number] Tube Flush (ml) 80 170 Output: Urine (ml) 1942 2069 275 Catheter 19420 275 CSF Drainage Amount 193 246 55 Right Ventriculostomy 1 193 246 55 Other: Weight 122 kg 123.5 kg 122.3 kg Number of Stools Catheter 0 Result Diagrams: 01/03/17 03:10 01/04/17 09:00 Cardiac Labs: Cardiac Lab Results (72 Hrs) 01/04/17 01/04/17 01/03/17 03:10 03:10 03:10 Troponin I 0.099 H Cancelled 0.301 H 01/02/17 10:55 Troponin I 0.934 H - Physical Exam Constitutional: other (Intubated, Sedated ) ICD10 Worksheet Patient Problems: Problems Problem Status Onset Intracranial bleeding Acute
--- NOTE | 2017-01-04 13:57 | PDINTPN ---
Byproducts Supervisor Progress Note Assessment/Plan: Assessment: SAH s/p Clipping of vertebral aneurism: Still requiring sedation due to agitation. Had episode of bradycardia, so changed from Precedex to Propofol, but still having episodes of bradycardia. Cardiomyopathy: Small regional wall motion abnormality, ?old vs related to ICH. Vitals OK, troponins down Bradycardia: Intermittent. Associated with transient elevations in ICP Respiratory failure: O2 needs back up to 80%. ? aspiration pneumonia? Afebrile Nutrition: None for over 72 hours Hypernatremia: Na 152, goal 145. Metabolic acidosis: NAG, mild Plan: Change back to Propofol. Check TCD. Continue vent for now. Antibiotics if WBC increasing, fever, and/or increased O2 needs. Increase acceptable BP level per NS. 01/04/17 14:03 Subjective: Intubated, sedated Objective: Vital Signs Temp Pulse Resp BP Pulse Ox 37.7 C 55 L 16 139/75 H 98 01/04/17 13:00 01/04/17 13:00 01/04/17 13:00 01/04/17 13:00 01/04/17 13:00 Laboratory Results 01/03/17 03:10 01/04/17 09:00 01/03/17 01/04/17 01/05/17 05:59 05:59 05:59 Intake Total 745.5 2512.1 Output Total 2136 2316 402 Balance -1390.5 196.1 -402 PT 13.2 SEC (12.0-15.0) 01/02/17 10:55 INR 1.01 (0.83-1.16) 01/02/17 10:55 CXR: Persistent bibasilar infiltrates, pneumonia versus atelectasis. Images reviewed Physical Exam - Physical Exam General Appearance: No alert EENT: normal ENT inspection Neck: normal inspection Respiratory: lungs clear Cardiac/Chest: regular rate, rhythm, No edema Abdomen: normal bowel sounds, non-tender, soft Skin: normal color, warm/dry Extremities: normal inspection Neuro/Psych: No alert, No motor weakness (moving all extremities with decreased sedation) ICD10 Worksheet Patient Problems: Problems Problem Status Onset Intracranial bleeding Acute
--- NOTE | 2017-01-04 16:33 | ASMTCMCOM ---
CM Note CM Note Notes: Met with patient's who had questions re: FMLA and disability for patient. Patient will get the FMLA papers from [employer] where her works.She was advised she could bring them to us to get some assistance with getting them filled out and returned to [employer]. Disability was explained to her as a assisted program she can apply for through social security if the patient were not able to return to work. This option is not one she needs to initiate at this time. Patient was visibly distressed and spoke of how she had lost her first very suddenly. She and the patient have 2 grown daughters and a 3yo son. She is shaken that this medical situation has arisen very suddenly as well. Patient informed of family meetings and what they are for. She was invited to let us know if she is feeling like she wants this support and we will schedule it for her. Spoke with Evelyn Bruno about checking with the patient for more emotional support and touching base about the need for a family meeting on Saturday. CM will follow. Date Signed: 01/04/2017 04:32 PM Electronically Signed By:Jacquelin Jarquin LCSW
[2017-01-04] MEDS: HEPARIN 5,000 UNIT/0.5 ML SYR SC SCH (20:36)
[2017-01-05] MEDS: PROPOFOL/EMULSION 100 ML IV SCH ×6 (01:32→18:43)
[2017-01-05] MEDS: niMODipine 30 MG/0.9 ML UDL TUBE SCH ×6 (01:32→21:56)
[2017-01-05] MEDS: ACETAMINOPHEN 650 MG/20.3 ML UDCUP TUBE PRN ×2 (04:28→10:43)
[2017-01-05] MEDS ORDERED: ATROPINE SULFATE 1 MG/10 ML SYR IVP ONE (05:45)
[2017-01-05 06:22] LABS: BASE EXCESS -4.2 mEq/L (-2.5-2.5); BICARBONATE 21 mEq/L (22-26); MEASURED OXYGEN SATURATION 91 % (92-95); PCO2 38 mmHg (34-38); PO2 62 mmHg (65-75); TCO2 22 mEq/L (23-27)
[2017-01-05 06:25] LABS: END TIDAL CO2 29
[2017-01-05 06:26] LABS: PATIENT RATE 16; SIMV YES
[2017-01-05] MEDS: niCARdipine/NACL 200 ML IV SCH (06:52)
[2017-01-05] MEDS: fentaNYL/NACL 100 ML IV SCH ×3 (07:40→18:43)
--- NOTE | 2017-01-05 08:00 | NEUSURGPN ---
Assessment/Plan: ssessment: 51 yo male with altered MS and diffuse SAH. 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 Plan: -Neuro: right pupil 4 sluggish,left pupil 2 and brisk, Following simple commands. ICP was 33 overnight after dose of atropine. and this mornign durning exam. Discussed with Dr. Hansen and will keep sedated this morning -Follow CVP. Patient should should be euvolemic -May increase SBP goal to of 90-180 -Continue Nimotop for Vasospasm -Continue Keppra 750mg BID -Continue ventric open at 5 -Na 154 this am -Transcranial doppler study on 01/04: no evidence of vasospasm -Discussed with Dr Hansen Subjective: Unable to obtain Objective: NAD Intubated, right pupil 4mm sluggish, left 2mm and briskly reactive, squeezes with right hand, wiggles toes on commands bilaterally ICP 34 on monitor , unable to asses manual as ICP >20 Catheter Insertion Date: 01/02/17 - Physician Discussed Patient with Dr.: Hansen Neurosurgery Physical Exam - Vitals, I&O, Labs I and O 01/04/17 01/05/17 01/06/17 05:59 05:59 05:59 Intake Total 2512.1 1003 Output Total 2316 2084 318 Balance 196.1 -1081 -318 Weight 123.5 kg 122.3 kg 120.9 kg Intake: Oral (ml) 30 IV Intake (ml) 141 IV Infused (ml) 2171.1 938 Dexmedetomidine in 0.9 % 560 NaCl 100 ml @ Per Protocol IV CONT KADEN Rx#: [id number] NS W/ 20 KCl/L 1,000 ml @ 228 650 125 mls/hr IV CONT KADEN Rx#:[id number] Propofol/Emulsion 100 ml 176 204 @ Per Protocol IV CONT KADEN Rx#:[id number] SODIUM Cl 3% 500 ml @ 30 732 mls/hr IV CONT KADEN Rx#: [id number] fentaNYL/NACL 100 ml @ 172 84 Per Protocol IV CONT KADEN Rx#:[id number] levETIRAcetam 750 mg In 107 Ns 100 ml @ 420 mls/hr IV BID KADEN Rx#:[id number] niCARdipine/NACL 200 ml @ 196.1 Titrate IV CONT KADEN Rx#: [id number] Tube Flush (ml) 170 65 Output: Urine (ml) 2070 1195 310 Catheter 2070 1195 310 OG Tube Output (ml) 650 Large Bore (>12 [place]) 650 Non-weighted Stomach CSF Drainage Amount 246 239 8 Right Ventriculostomy 1 246 239 8 Other: Number of Stools Catheter 0 0 Vital Signs Temp Pulse Resp BP Pulse Ox 36.7 C 52 L 16 153/78 H 90 L 01/05/17 07:00 01/05/17 07:00 01/05/17 07:00 01/05/17 07:00 01/05/17 07:00 Laboratory Results 01/03/17 03:10 01/05/17 03:03 ICD10 Worksheet Patient Problems: Problems Problem Status Onset Intracranial bleeding Acute
[2017-01-05] MEDS: levETIRAcetam 750 MG in NS 100 ML IV SCH ×2 (10:02→20:58)
[2017-01-05] MEDS: HEPARIN 5,000 UNIT/0.5 ML SYR SC SCH ×2 (10:02→20:56)
[2017-01-05] MEDS: BACITRACIN OINTMENT 1 PACKET TP SCH ×2 (10:11→20:56)
[2017-01-05] MEDS ORDERED: hydrALAZINE 20 MG/ML VIAL ONE (10:57)
[2017-01-05] MEDS ORDERED: 1/2 NS IV SCH (11:00)
[2017-01-05] MEDS ORDERED: NICARDIPINE IV SCH (11:00)
[2017-01-05] MEDS ORDERED: hydrALAZINE 20 MG/ML VIAL IVP ONE ×2 (11:15→13:15)
[2017-01-05] MEDS: VECURONIUM BROMIDE 50 MG in D5W 50 ML IV SCH ×3 (12:06→21:58)
[2017-01-05] MEDS ORDERED: FUROSEMIDE 40 MG/4 ML VIAL IVP ONE (12:22)
--- NOTE | 2017-01-05 12:25 | PDINTPN ---
Mannequin Mold Maker Progress Note Assessment/Plan: Assessment: SAH s/p Clipping of vertebral aneurism: ICP high despite sedation. In addition to brain edema/blood from hemorrhage, high PEEP and [employer] GOL[employer] BALL could contribute. TCDs apparently didn't show spasm. Cardiomyopathy: Small regional wall motion abnormality, ?old vs related to ICH. Vitals OK, troponins down Bradycardia: Intermittent. Associated with transient elevations in ICP Respiratory failure: O2 needs remain high. ? aspiration pneumonia, fluid overload (CVP 16). Nutrition: None since 01/01 Hypernatremia: Na 157, goal 145. Metabolic acidosis: NAG, mild Plan: Continue Propofol/Fentanyl. Add Vecuronium to lower ICP. Continue vent. PEEP high now due to hypoxemia, but could be contributing to high ICP, will try to decrease. Will try Lasix. Antibiotics if WBC increasing, fever, and/or increased O2 needs. Increase acceptable BP level per NS. Change fluids to 1/2 NS or D5 as possible. Follow Na closely. 35 minutes CC time managing hypoxemia, high ICP/paralysis. 01/05/17 12:25 Subjective: Intubated, sedated Objective: Vital Signs Temp Pulse Resp BP Pulse Ox 36.9 C 75 14 161/80 H 93 01/05/17 12:00 01/05/17 12:00 01/05/17 12:00 01/05/17 12:00 01/05/17 12:00 Laboratory Results 01/03/17 03:10 01/05/17 09:00 01/04/17 01/05/17 01/06/17 05:59 05:59 05:59 Intake Total 2512.1 1003 Output Total 2316 2084 836 Balance 196.1 -1081 -836 PT 13.2 SEC (12.0-15.0) 01/02/17 10:55 INR 1.01 (0.83-1.16) 01/02/17 10:55 CXR: Increased basilar infiltrate. Images reviewed. Laboratory Tests 01/04/17 01/04/17 01/05/17 05:00 09:00 06:13 pCO2 35 38 pO2 74 62 L Total CO2 22 L 22 L ABG pH 7.38 7.35 ABG PO2/FiO2 Ratio 123 ABG HCO3 21 L 21 L O2 Concentration % 60 Respiration Rate 16 Actual Respiration Rate 16 SIMV YES Assist Control YES Tidal Volume 650 600 PEEP 10 Sodium 152 H Physical Exam - Physical Exam General Appearance: alert, no apparent distress EENT: normal ENT inspection Neck: normal inspection Respiratory: lungs clear, normal breath sounds Cardiac/Chest: regular rate, rhythm, edema (1+) Abdomen: normal bowel sounds, non-tender, soft Skin: normal color, warm/dry Extremities: normal inspection Neuro/Psych: No alert, No normal mood/affect, No oriented x 3 ICD10 Worksheet Patient Problems: Problems Problem Status Onset Intracranial bleeding Acute
[2017-01-05] MEDS ORDERED: MIDAZOLAM 2 MG/2 ML VIAL IVP ONE ×2 (13:15→13:28)
[2017-01-05] MEDS ORDERED: MIDAZOLAM 2 MG/2 ML VIAL ONE (14:03)
[2017-01-05] MEDS ORDERED: ALTEPLASE 2 MG VIAL IVP PRN (14:20)
[2017-01-05] MEDS ORDERED: D5W IV ONE (14:30)
[2017-01-05] MEDS ORDERED: [UNRECOGNIZED DRUG - OTHER] IV ONE (14:30)
[2017-01-05] MEDS ORDERED: NARCOTIC DRIP BAG-TOTAL ALL TYPES IV PRN (14:45)
[2017-01-05 14:51] LABS: BASE EXCESS -4.8 mEq/L (-2.5-2.5); BICARBONATE 21 mEq/L (22-26); MEASURED OXYGEN SATURATION 95 % (92-95); PCO2 39 mmHg (34-38); PO2 76 mmHg (65-75); TCO2 22 mEq/L (23-27)
[2017-01-05 14:53] LABS: O2 CONCENTRATIION 100 % (0-100); P/F RATIO 76 RATIO; PATIENT RATE 16; PIP 22; PRESSURE SUPPORT 10
[2017-01-05] MEDS ORDERED: PHENYLEPHRINE HCL 50 MG in D5W 250 ML IV SCH (15:00)
[2017-01-05] MEDS: PENTOBARBITAL SODIUM 1,000 MG in D5W 250 ML IV SCH ×3 (15:34→20:42)
[2017-01-05] MEDS ORDERED: [UNRECOGNIZED DRUG - OTHER] IV SCH (16:00)
[2017-01-05] MEDS ORDERED: D5W IV SCH (16:00)
[2017-01-05] MEDS ORDERED: MANNITOL 20% 250 ML IV ONE (19:00)
[2017-01-05] MEDS: PHENYLEPHRINE HCL 50 MG in D5W 250 ML IV SCH (20:57)
[2017-01-05 22:38] LABS: MAGNESIUM 2.3 mg/dL (1.6-2.3)
[2017-01-05] MEDS: PETROLAT,WHT/MIN OIL/SOD CHL 3.5 GM OPHT.OINT EACHEYE PRN (22:39)
[2017-01-05 22:52] LABS: POTASSIUM 2.3 mEq/L (3.5-5.2)
[2017-01-05] MEDS ORDERED: PROTOCOL POTASSIUM 1 DOSE MISC PRN (23:06)
[2017-01-05] MEDS ORDERED: PROTOCOL MAGNESIUM 1 DOSE IV PRN (23:06)
[2017-01-05] MEDS: POTASSIUM Cl (KCl) 100 ML IV SCH (23:20)
[2017-01-06] MEDS: POTASSIUM Cl (KCl) 100 ML IV SCH (00:11)
[2017-01-06] MEDS: [UNRECOGNIZED DRUG - OTHER] IV SCH ×5 (01:07→09:14)
[2017-01-06] MEDS: NS IV SCH ×5 (01:07→09:14)
[2017-01-06] MEDS: PROPOFOL/EMULSION 100 ML IV SCH ×6 (01:24→23:23)
[2017-01-06] MEDS: fentaNYL/NACL 100 ML IV SCH ×4 (01:24→23:23)
[2017-01-06] MEDS: niMODipine 30 MG/0.9 ML UDL TUBE SCH ×6 (02:18→22:10)
[2017-01-06 03:18] LABS: MAGNESIUM 2.1 mg/dL (1.6-2.3); SODIUM 154 mEq/L (134-144)
[2017-01-06] MEDS ORDERED: POTASSIUM Cl (KCl) 20 MEQ/100 ML BAG IV ONE (03:56)
[2017-01-06] MEDS: POTASSIUM Cl (KCl) 50 ML IV SCH ×9 (04:11→21:05)
[2017-01-06] MEDS ORDERED: POTASSIUM Cl (KCl) 100 ML IV ONE (04:45)
[2017-01-06] MEDS: VECURONIUM BROMIDE 50 MG in D5W 50 ML IV SCH ×3 (05:03→19:07)
[2017-01-06 05:48] LABS: BASE EXCESS -4.4 mEq/L (-2.5-2.5); BICARBONATE 22 mEq/L (22-26); MEASURED OXYGEN SATURATION 95 % (92-95); PCO2 43 mmHg (34-38); PO2 74 mmHg (65-75); TCO2 23 mEq/L (23-27)
[2017-01-06 05:49] LABS: SIMV YES
[2017-01-06 05:50] LABS: END TIDAL CO2 28; O2 CONCENTRATIION 100 % (0-100); P/F RATIO 74 RATIO; PATIENT RATE 16; PRESSURE SUPPORT 10
[2017-01-06 06:17] LABS: POTASSIUM 2.7 mEq/L (3.5-5.2)
[2017-01-06] MEDS: PHENYLEPHRINE HCL 50 MG in D5W 250 ML IV SCH ×3 (06:33→18:33)
--- NOTE | 2017-01-06 08:24 | NEUSURGPN ---
Assessment/Plan: ssessment: 51 yo male with altered MS and diffuse SAH. Ventric placed at [facility] and transferred to 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 Plan: -Neuro: Placed on Pentobarbital yesterday. ICP were in the mid 30s, this morning ICP7. Continue sedation and paralytic for te next 1-2 days. -Follow CVP. Patient should should be euvolemic -May increase SBP goal to of 140-180 -Continue Nimotop for Vasospasm -Continue Keppra 750mg BID -Continue ventric open at 5 -Na 154 this am, off of 3% -Transcranial doppler study on 01/04: no evidence of vasospasm. Will repeat tomorrow -Discussed with Dr Hansen Subjective: Unable to obtain Objective: left pupil 3mm, right 2mm. ICP unable to measure manual this morning, 7 on monitor. CSF clear Catheter Insertion Date: 01/02/17 - Physician Discussed Patient with : [facility] Physical Exam - Vitals, I&O, Labs I and O 01/05/17 01/06/17 01/07/17 05:59 05:59 05:59 Intake Total 1003 4114.7 Output Total 2084 4988 175 Balance -1081 -873.3 -175 Weight 122.3 kg 120.9 kg 122 kg Intake: IV Intake (ml) 551 IV Infused (ml) 938 3433.7 Mannitol 20% 250 ml @ As 250 Directed IV ONCE ONE Rx#: [id number] NS W/ 20 KCl/L 1,000 ml @ 650 0 125 mls/hr IV CONT KADEN Rx#:[id number] Pentobarbital Sodium 1, 1446 000 mg In D5w 250 ml @ As Directed IV CONT KADEN Rx# :[id number] Phenylephrine HCl 50 mg 196 In D5w 250 ml @ Per Protocol IV CONT KADEN Rx#: [id number] Propofol/Emulsion 100 ml 204 657 @ Per Protocol IV CONT KADEN Rx#:[id number] SODIUM Cl 3% 500 ml @ 30 0 mls/hr IV CONT KADEN Rx#: [id number] Vecuronium [place] 50 mg 344.7 In D5w 50 ml @ Per Protocol IV CONT KADEN Rx#: [id number] fentaNYL/NACL 100 ml @ 84 365 Per Protocol IV CONT KADEN Rx#:[id number] niCARdipine/NACL 200 ml @ 175 Titrate IV CONT KADEN Rx#: [id number] Tube Flush (ml) 65 130 Output: Urine (ml) 1195 3800 150 Catheter 1195 3800 150 OG Tube Output (ml) 650 1000 Large Bore (>12 [place]) 650 1000 Non-weighted Stomach CSF Drainage Amount 239 188 25 Right Ventriculostomy 1 239 188 25 Other: Number of Stools Catheter 0 0 Vital Signs Temp Pulse Resp BP Pulse Ox 36.5 C 65 16 122/68 H 95 01/06/17 08:00 01/06/17 08:00 01/06/17 08:00 01/06/17 08:00 01/06/17 08:00 Laboratory Results 01/03/17 03:10 01/06/17 05:36 ICD10 Worksheet Patient Problems: Problems Problem Status Onset Intracranial bleeding Acute
[2017-01-06] MEDS: levETIRAcetam 750 MG in NS 100 ML IV SCH ×2 (08:33→20:45)
[2017-01-06] MEDS: HEPARIN 5,000 UNIT/0.5 ML SYR SC SCH ×2 (08:33→20:48)
[2017-01-06] MEDS: BACITRACIN OINTMENT 1 PACKET TP SCH ×2 (08:34→20:49)
--- NOTE | 2017-01-06 09:31 | PDINTPN ---
Switch Maker Progress Note Assessment/Plan: Assessment: SAH s/p Clipping of vertebral aneurism: ICP high yesterday despite sedation, including pentobarb coma initiated yesterday. Responded to mannitol, and have remained low except when pentobarb weaned. TCDs apparently didn't show spasm. Cardiomyopathy: Small regional wall motion abnormality, ?old vs related to ICH. Vitals OK, troponins down Bradycardia: Intermittent. Associated with transient elevations in ICP Respiratory failure: O2 needs remain high. ? aspiration pneumonia, fluid overload (CVP 16) yesterday. CXR improved today on lower PEEP, likely due to diuresis from lasix and mannitol. Nutrition: None since 01/01 Hypernatremia: Na 154, goal 145. Metabolic acidosis: HCO3 now normal Hypokalemia: Likely due to diuresis. Improved with replacement Plan: Continue Propofol/Fentanyl/pentobarb. Will try to wean propofol, which could contribute to myocardial depression and the need for phenylephrine to maintain BP. Antibiotics if WBC increasing, fever, and/or increased O2 needs. Increase acceptable BP level per NS. Follow Na closely. 40 minutes CC time managing hypoxemia, high ICP/paralysis, pressors, respiratory acidosis. 01/06/17 09:32 Subjective: Pentobarb coma Objective: Vital Signs Temp Pulse Resp BP Pulse Ox 36.5 C 66 16 120/67 95 01/06/17 08:30 01/06/17 08:30 01/06/17 08:30 01/06/17 08:30 01/06/17 08:30 Laboratory Results 01/03/17 03:10 01/06/17 05:36 01/05/17 01/06/17 01/07/17 05:59 05:59 05:59 Intake Total 1003 4114.7 Output Total 2084 4938 175 Balance -1081 -873.3 -175 PT 13.2 SEC (12.0-15.0) 01/02/17 10:55 INR 1.01 (0.83-1.16) 01/02/17 10:55 CXR: Improved right base atelectasis. Images reviewed. Laboratory Tests 01/06/17 05:36 pCO2 43 H pO2 74 Total CO2 23 ABG pH 7.32 L ABG HCO3 22 O2 Concentration % 100 Actual Respiration Rate 16 SIMV YES Tidal Volume 650 PEEP 10 Physical Exam - Physical Exam General Appearance: alert, no apparent distress EENT: normal ENT inspection Neck: normal inspection Respiratory: lungs clear, normal breath sounds Cardiac/Chest: regular rate, rhythm, No edema Abdomen: normal bowel sounds, non-tender, soft Skin: normal color, warm/dry Extremities: normal inspection Neuro/Psych: No alert (pentobarb coma), No normal mood/affect, No oriented x 3 ICD10 Worksheet Patient Problems: Problems Problem Status Onset Intracranial bleeding Acute
[2017-01-06 09:39] LABS: ANION GAP 13 mEq/L (8-16); CALCIUM 8.5 mg/dL (8.5-10.4); CARBON DIOXIDE 22 mEq/l (22-31); CHLORIDE 120 mEq/L (97-110); CREATININE 1.4 mg/dL (0.7-1.3); GLOMERULAR FILTRATION RATE 53; GLUCOSE 99 mg/dL (70-100); POTASSIUM 3.5 mEq/L (3.5-5.2); SODIUM 155 mEq/L (134-144)
[2017-01-06] MEDS: [UNRECOGNIZED DRUG - OTHER] IV SCH ×4 (11:05→20:21)
[2017-01-06] MEDS: 1/2 NS IV SCH ×4 (11:05→20:21)
[2017-01-06] MEDS: PANTOPRAZOLE SODIUM 40 MG VIAL IVP SCH (11:21)
[2017-01-06] MEDS: NOREPINEPHRINE BITARTRATE 16 MG in NS 250 ML IV SCH (11:45)
[2017-01-06 12:42] LABS: POTASSIUM 3.1 mEq/L (3.5-5.2); SODIUM 160 mEq/L (134-144)
[2017-01-06] MEDS ORDERED: D5W 250 ML IV SCH (13:30)
[2017-01-06] MEDS ORDERED: POTASSIUM Cl (KCl) 50 ML IV SCH (14:15)
[2017-01-06 18:25] LABS: POTASSIUM 3.5 mEq/L (3.5-5.2); SODIUM 155 mEq/L (134-144)
[2017-01-07] MEDS: PHENYLEPHRINE HCL 50 MG in D5W 250 ML IV SCH ×4 (00:20→23:38)
[2017-01-07] MEDS: PENTOBARBITAL SODIUM 1,000 MG in D5W 250 ML IV SCH ×6 (00:20→20:28)
[2017-01-07 00:21] LABS: POTASSIUM 3.8 mEq/L (3.5-5.2)
[2017-01-07] MEDS ORDERED: POTASSIUM Cl (KCl) 50 ML IV ONE (00:26)
[2017-01-07 00:41] LABS: SODIUM 158 mEq/L (134-144)
[2017-01-07] MEDS ORDERED: D5W 250 ML IV ONE (02:00)
[2017-01-07] MEDS: niMODipine 30 MG/0.9 ML UDL TUBE SCH ×6 (02:10→21:15)
[2017-01-07] MEDS: NOREPINEPHRINE BITARTRATE 16 MG in NS 250 ML IV SCH (02:56)
[2017-01-07] MEDS: fentaNYL/NACL 100 ML IV SCH ×3 (05:39→21:14)
[2017-01-07 06:10] LABS: CALCIUM 8.8 mg/dL (8.5-10.4); CARBON DIOXIDE 25 mEq/l (22-31); CHLORIDE 121 mEq/L (97-110); CREATININE 1.4 mg/dL (0.7-1.3); GLOMERULAR FILTRATION RATE 53; GLUCOSE 142 mg/dL (70-100); MAGNESIUM 1.9 mg/dL (1.6-2.3); POTASSIUM 3.1 mEq/L (3.5-5.2)
[2017-01-07 06:15] LABS: ANION GAP 14 mEq/L (8-16); SODIUM 160 mEq/L (134-144)
[2017-01-07] MEDS: POTASSIUM Cl (KCl) 50 ML IV SCH ×2 (06:46→07:47)
--- NOTE | 2017-01-07 07:42 | NEUSURGPN ---
Assessment/Plan: Assessment: 51 yo male with altered MS and diffuse SAH. 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 Plan: -Neuro: On Pentobarbital ICP staying in the single digits.. Continue sedation and paralytic for today. Will wean tomorrow -Follow CVP. Patient should should be euvolemic -May increase SBP goal to of 140-180 -Continue Nimotop for Vasospasm -Continue Keppra 750mg BID -Continue ventric open at 5 -Na 160. Likely from pentabarbital. total fluids approximately 100cc. Urine specific gravity pending. 250cc bolus of D5W given. -Transcranial doppler study MW -Discussed with Dr Hansen Subjective: Unable to obtain Objective: NAD intubated, sedated. right pupil 3mm, left 2mm. CSF clear. Catheter Insertion Date: 01/02/17 - Physician Discussed Patient with Dr.: Hansen Neurosurgery Physical Exam - Vitals, I&O, Labs I and O 01/06/17 01/07/17 01/08/17 05:59 05:59 05:59 Intake Total 4114.7 4992 Output Total 4988 4759 15 Balance -873.3 233 -15 Weight 120.9 kg 122 kg Intake: IV Intake (ml) 551 215 IV Infused (ml) 3433.7 4777 D5w 250 ml @ 100 mls/hr 842 IV CONT KADEN Rx#: [id number] Mannitol 20% 250 ml @ As 250 Directed IV ONCE ONE Rx#: [id number] NS W/ 20 KCl/L 1,000 ml @ 0 125 mls/hr IV CONT KADEN Rx#:[id number] Norepinephrine Bitartrate 243 16 mg In Ns 250 ml @ Per Protocol IV CONT KADEN Rx# :[id number] Pentobarbital Sodium 1, 682 000 mg In 1/2 Ns 250 ml @ As Directed IV CONT KADEN Rx#:[id number] Pentobarbital Sodium 1, 1446 1247 000 mg In D5w 250 ml @ As Directed IV CONT KADEN Rx# :[id number] Phenylephrine HCl 50 mg 196 In D5w 250 ml @ Per Protocol IV CONT KADEN Rx#: [id number] Phenylephrine HCl 50 mg 873 In D5w 250 ml @ Titrate IV CONT KADEN Rx#: [id number] Propofol/Emulsion 100 ml 657 421 @ Per Protocol IV CONT KADEN Rx#:[id number] SODIUM Cl 3% 500 ml @ 30 0 mls/hr IV CONT KADEN Rx#: [id number] Vecuronium [place] 50 mg 344.7 155 In D5w 50 ml @ Per Protocol IV CONT KADEN Rx#: [id number] fentaNYL/NACL 100 ml @ 365 314 Per Protocol IV CONT KADEN Rx#:[id number] niCARdipine/NACL 200 ml @ 175 Titrate IV CONT KADEN Rx#: [id number] Tube Flush (ml) 130 Output: Urine (ml) 3800 4069 Catheter 3800 4069 OG Tube Output (ml) 1000 500 Large Bore (>12 [place]) 1000 500 Non-weighted Stomach CSF Drainage Amount 188 190 15 Right Ventriculostomy 1 188 190 15 Other: Number of Stools Catheter 0 Vital Signs Temp Pulse Resp BP Pulse Ox 37 C 91 18 156/83 H 94 01/07/17 06:00 01/07/17 07:00 01/07/17 07:00 01/07/17 07:00 01/07/17 07:00 Laboratory Results 01/03/17 03:10 01/07/17 05:35 ICD10 Worksheet Patient Problems: Problems Problem Status Onset Intracranial bleeding Acute
[2017-01-07] MEDS: HEPARIN 5,000 UNIT/0.5 ML SYR SC SCH ×3 (08:18→21:15)
[2017-01-07] MEDS: levETIRAcetam 750 MG in NS 100 ML IV SCH ×2 (08:18→20:28)
[2017-01-07] MEDS: BACITRACIN OINTMENT 1 PACKET TP SCH ×2 (08:18→20:28)
[2017-01-07] MEDS: PANTOPRAZOLE SODIUM 40 MG VIAL IVP SCH (08:18)
[2017-01-07] MEDS: CHLORHEXIDINE GLUCONATE 15 ML UDL PO SCH ×2 (08:18→20:28)
[2017-01-07] MEDS: PETROLAT,WHT/MIN OIL/SOD CHL 3.5 GM OPHT.OINT EACHEYE PRN (08:27)
--- NOTE | 2017-01-07 09:17 | PDINTPN ---
Fire Adjuster Progress Note Assessment/Plan: Assessment/plan: * SAH s/p Clipping of vertebral aneurism: ICP high despite sedation, including pentobarb coma initiated yesterday. Responded to mannitol, and have remained low except when pentobarb weaned. TCDs apparently didn't show spasm. * Cardiomyopathy: Small regional wall motion abnormality, ?old vs related to ICH. Vitals OK, troponins down * Bradycardia: Intermittent. Associated with transient elevations in ICP * Respiratory failure: O2 needs remain high. ? aspiration pneumonia, fluid overload (CVP 16) yesterday. CXR improved today on lower PEEP, likely due to diuresis from lasix and mannitol. -wean FiO2 as tolerated. Consider bronchoscopy. * Nutrition: None since 01/01 * Hypernatremia: Na 154, goal 145. * Metabolic acidosis: HCO3 now normal * Hypokalemia: Likely due to diuresis. Improved with replacement Case discussed with Nursing and Respiratory therapy. 35 minutes of critical care time spent with patient Subjective: Sedated, paralyzed and on mechanical ventilation Objective: Vital Signs Temp Pulse Resp BP Pulse Ox 36.5 C 90 18 148/88 H 93 01/07/17 08:00 01/07/17 09:00 01/07/17 09:00 01/07/17 09:00 01/07/17 09:00 Laboratory Results 01/03/17 03:10 01/07/17 05:35 01/06/17 01/07/17 01/08/17 05:59 05:59 05:59 Intake Total 4114.7 4992 Output Total 4988 4759 164 Balance -873.3 233 -164 PT 13.2 SEC (12.0-15.0) 01/02/17 10:55 INR 1.01 (0.83-1.16) 01/02/17 10:55 - Time Spent With Patient Time Spent With Patient: 35 minutes of critical care time spent with patient Physical Exam - Physical Exam General Appearance: other (Sedated paralyzed), No alert EENT: PERRL/EOMI, ET tube Neck: non-tender Respiratory: crackles (Few bibasilar), No respiratory distress, No wheezing Cardiac/Chest: normal peripheral pulses, regular rate, rhythm Abdomen: normal bowel sounds, non-tender, soft Male Genitalia: deferred Rectal: deferred Skin: normal color, warm/dry Extremities: normal range of motion, non-tender, normal inspection, normal capillary refill Neuro/Psych: No alert ICD10 Worksheet Patient Problems: Problems Problem Status Onset Intracranial bleeding Acute
[2017-01-07] MEDS: VECURONIUM BROMIDE 50 MG in D5W 50 ML IV SCH (09:39)
[2017-01-07] MEDS: CARBOXYMETHYLCELLULOSE 1% 0.4 ML DROPERETTE EACHEYE SCH ×2 (09:47→20:28)
[2017-01-07] MEDS: ALBUTEROL 200 PUFFS/18 GM MDI IH SCH ×4 (11:43→23:56)
[2017-01-07] MEDS ORDERED: 1/2 NS IV SCH (11:45)
[2017-01-07] MEDS ORDERED: D5W IV SCH (11:45)
[2017-01-07] MEDS ORDERED: NICARDIPINE IV SCH ×2 (11:45)
[2017-01-07 12:16] LABS: % IMMATURE GRANULYOCYTES 1.3 % (0.0-1.1); ABSOLUTE IMMATURE GRANULOCYTES 0.26 10^3/uL (0.00-0.10); ADD DIFF? NO; ADD MORPH? NO; ADD SCAN? NO; ATYPICAL LYMPHOCYTE FLAG 0 (0-99); FRAGMENT RBC FLAG 0 (0-99); HEMATOCRIT 48.7 % (40.0-51.0); HEMOGLOBIN 15.6 g/dL (13.7-17.5); LEFT SHIFT FLG 20 (0-99); LIPEMIA HEMOLYSIS FLAG 80 (0-99); MEAN CELL HEMOGLOBIN 29.8 pg (27.9-34.1); MEAN CELL VOLUME 93.1 fL (81.5-99.8); MEAN PLATELET VOLUME 9.6 fL (8.7-11.7); PLATELET CLUMPS FLAG 0 (0-99); PLATELET COUNT 216 10^3/uL (150-400); RED BLOOD CELL COUNT 5.23 10^6/uL (4.40-6.38); RED CELL DISTRIBUTION WIDTH 14.6 % (11.5-15.2)
[2017-01-07 12:54] LABS: POTASSIUM 4.2 mEq/L (3.5-5.2); SODIUM 156 mEq/L (134-144)
[2017-01-07] MEDS: TEARS/DEXTRAN 70/HYPROMELLOSE 15 ML OPHT.BTL EACHEYE SCH ×3 (14:00→21:15)
--- NOTE | 2017-01-07 14:33 | ASMTCMCOM ---
CM Note CM Note Notes: Patient had a dissecting R vertebral artery, coils x6. He continues to be intubated and sedated. In-pt Rehab following his case. Date Signed: 01/07/2017 02:32 PM Electronically Signed By:Alana Kingsley LCSW
[2017-01-07 18:11] LABS: POTASSIUM 4.7 mEq/L (3.5-5.2); SODIUM 153 mEq/L (134-144)
[2017-01-08 00:48] LABS: POTASSIUM 4.2 mEq/L (3.5-5.2); SODIUM 156 mEq/L (134-144)
[2017-01-08] MEDS: niMODipine 30 MG/0.9 ML UDL TUBE SCH ×9 (01:42→23:22)
[2017-01-08] MEDS: TEARS/DEXTRAN 70/HYPROMELLOSE 15 ML OPHT.BTL EACHEYE SCH ×6 (01:43→23:22)
[2017-01-08] MEDS: NOREPINEPHRINE BITARTRATE 16 MG in NS 250 ML IV SCH ×2 (01:44→15:45)
[2017-01-08] MEDS: PENTOBARBITAL SODIUM 1,000 MG in D5W 250 ML IV SCH ×3 (02:36→23:39)
[2017-01-08] MEDS: ALBUTEROL 200 PUFFS/18 GM MDI IH SCH ×6 (04:20→23:38)
[2017-01-08] MEDS: fentaNYL/NACL 100 ML IV SCH ×3 (04:50→20:41)
[2017-01-08 04:56] LABS: BICARBONATE 23 mEq/L (22-26); MEASURED OXYGEN SATURATION 90 % (92-95); PCO2 47 mmHg (34-38); PO2 60 mmHg (65-75); TCO2 24 mEq/L (23-27)
[2017-01-08 04:57] LABS: END TIDAL CO2 30; O2 CONCENTRATIION 65 % (0-100); P/F RATIO 92 RATIO; PATIENT RATE 18; PRESSURE SUPPORT 10; SIMV YES
[2017-01-08 05:02] LABS: % IMMATURE GRANULYOCYTES 1.6 % (0.0-1.1); ABSOLUTE IMMATURE GRANULOCYTES 0.26 10^3/uL (0.00-0.10); ABSOLUTE NRBC COUNT 0.02 10^3/uL (0-0.01); ADD DIFF? NO; ADD MORPH? NO; ADD SCAN? NO; ATYPICAL LYMPHOCYTE FLAG 0 (0-99); FRAGMENT RBC FLAG 0 (0-99); HEMATOCRIT 48.3 % (40.0-51.0); HEMOGLOBIN 15.5 g/dL (13.7-17.5); LEFT SHIFT FLG 30 (0-99); LIPEMIA HEMOLYSIS FLAG 80 (0-99); MEAN CELL HEMOGLOBIN 30.2 pg (27.9-34.1); MEAN CELL HEMOGLOBIN CONCENTR. 32.1 g/dL (32.4-36.7); MEAN PLATELET VOLUME 10.1 fL (8.7-11.7); NRBC-AUTO% 0.1 % (0.0-0.2); PLATELET CLUMPS FLAG 10 (0-99); PLATELET COUNT 194 10^3/uL (150-400); RED BLOOD CELL COUNT 5.14 10^6/uL (4.40-6.38); RED CELL DISTRIBUTION WIDTH 14.6 % (11.5-15.2)
[2017-01-08] MEDS: HEPARIN 5,000 UNIT/0.5 ML SYR SC SCH ×3 (05:09→22:30)
[2017-01-08 05:23] LABS: ALANINE AMINOTRANSFERASE 34 IU/L (21-72); ALBUMIN 2.8 g/dL (3.5-5.0); ALKALINE PHOSPHATASE 113 IU/L (38-126); ANION GAP 16 mEq/L (8-16); ASPARTATE AMINOTRANSFERASE 30 IU/L (17-59); CALCIUM 8.6 mg/dL (8.5-10.4); CARBON DIOXIDE 22 mEq/l (22-31); CHLORIDE 118 mEq/L (97-110); CREATININE 1.6 mg/dL (0.7-1.3); GLOMERULAR FILTRATION RATE 45; GLUCOSE 182 mg/dL (70-100); MAGNESIUM 1.9 mg/dL (1.6-2.3); POTASSIUM 4.5 mEq/L (3.5-5.2); SODIUM 156 mEq/L (134-144); TOTAL PROTEIN 5.6 g/dL (6.3-8.2)
[2017-01-08] MEDS: PHENYLEPHRINE HCL 50 MG in D5W 250 ML IV SCH ×2 (06:39→15:45)
[2017-01-08] MEDS: levETIRAcetam 750 MG in NS 100 ML IV SCH ×2 (08:26→20:43)
[2017-01-08] MEDS: BACITRACIN OINTMENT 1 PACKET TP SCH ×2 (08:29→20:43)
[2017-01-08] MEDS: CHLORHEXIDINE GLUCONATE 15 ML UDL PO SCH ×2 (08:29→20:43)
[2017-01-08] MEDS: CARBOXYMETHYLCELLULOSE 1% 0.4 ML DROPERETTE EACHEYE SCH ×2 (08:30→20:43)
[2017-01-08] MEDS: PANTOPRAZOLE SODIUM 40 MG VIAL IVP SCH (08:38)
--- NOTE | 2017-01-08 08:39 | SOAPPROG ---
SOAP Progress Note Assessment/Plan: Assessment: 51 yo sp embolization of right vertebral artery on 01/02/17 for dissection aneurysm/SAH Plan: neuro: ICPs have been stable with transduced ICPs around 16 mmhg but manual ICPs of 23 mmhg this am. Will check head CT wo contrast to evaluate size of ventricles and SAH. Have TCds ordered for tomorrow to evaluate for vasospasm. continue pentobarb for now and will wean tomorrow if ICPs/head CT and TCDs are stable on keppra ventric open at 5 mmhg Na at goal of 156 SBP goal between 140-180 mmhg on nimodipine for vasospasm scd/vivek/sc heparin for dvt prophylaxis please call with neuro changes discussed with DR Hansen 01/08/17 08:37 01/08/17 08:41 01/08/17 08:47 Subjective: chart reviewed Objective: Vital Signs Temp Pulse Resp BP Pulse Ox 35.9 C L 89 20 144/79 H 95 01/08/17 06:00 01/08/17 08:09 01/08/17 08:09 01/08/17 07:00 01/08/17 08:09 Laboratory Results 01/08/17 04:40 01/08/17 04:40 01/07/17 01/08/17 01/09/17 05:59 05:59 05:59 Intake Total 4992 3250 Output Total 9501 2547 14 Balance 233 703 -14 PT 13.2 SEC (12.0-15.0) 01/02/17 10:55 INR 1.01 (0.83-1.16) 01/02/17 10:55 intubated sedated with pentobarb/fentanyl pupils: right 4, left 3 mm min reactive no gag C/D/I at EVD ICD10 Worksheet Patient Problems: Problems Problem Status Onset Intracranial bleeding Acute
--- NOTE | 2017-01-08 08:43 | PDINTPN ---
Screw Cutter Progress Note Assessment/Plan: Assessment/plan: * SAH s/p Clipping of vertebral aneurism: ICP high despite sedation, including pentobarb coma initiated yesterday. Responded to mannitol, and have remained low except when pentobarb weaned. TCDs apparently didn't show spasm. Vecuronium discontinue * Cardiomyopathy: Small regional wall motion abnormality, ?old vs related to ICH. Vitals OK, troponins down * Bradycardia: Intermittent. Associated with transient elevations in ICP * Respiratory failure: O2 requirements improved. Mildly hypercarbic. -will adjust rate * Nutrition: None since 01/01 * Hypernatremia: * Metabolic acidosis: Mild * Hypokalemia: Likely due to diuresis. Improved with replacement Case discussed with Nursing and Respiratory therapy and family 40 minutes of critical care time spent with patient Subjective: Sedated, pentobarbital coma Objective: Vital Signs Temp Pulse Resp BP Pulse Ox 35.9 C L 89 20 144/79 H 95 01/08/17 06:00 01/08/17 08:09 01/08/17 08:09 01/08/17 07:00 01/08/17 08:09 Laboratory Results 01/08/17 04:40 01/08/17 04:40 01/07/17 01/08/17 01/09/17 05:59 05:59 05:59 Intake Total 4992 3250 Output Total 7549 0157 14 Balance 233 703 -14 PT 13.2 SEC (12.0-15.0) 01/02/17 10:55 INR 1.01 (0.83-1.16) 01/02/17 10:55 Laboratory Results 01/08/17 04:40 01/08/17 04:40 01/08/17 01/08/17 04:40 04:40 Patient Temperature 35.8 DEGREES DEGREES pCO2 47 mmHg H mmHg (34 - 38) pO2 60 mmHg L mmHg (65 - 75) Total CO2 24 mEq/L mEq/L (23 - 27) ABG pH 7.30 L (7.35 - 7.45) ABG PO2/FiO2 Ratio 92 RATIO RATIO ABG HCO3 23 mEq/L mEq/L (22 - 26) ABG O2 Saturation 90 % L % (92 - 95) ABG Base Excess -4.0 mEq/L L mEq/L (-2.5 - 2.5) O2 Concentration % 65 % % Actual Respiration Rate 18 Set Respiration Rate 18 SIMV YES Tidal Volume 650 End Tidal CO2 30 PEEP 15 Pressure Support 10 Calcium 8.6 mg/dL mg/dL (8.5 - 10.4) Phosphorus 4.7 mg/dL H mg/dL (2.5 - 4.5) Magnesium 1.9 mg/dL mg/dL (1.6 - 2.3) Total Bilirubin 2.0 mg/dL H mg/dL (0.1 - 1.4) AST 30 IU/L IU/L (17 - 59) ALT 34 IU/L IU/L (21 - 72) Alkaline Phosphatase 113 IU/L IU/L (38 - 126) Total Protein 5.6 g/dL L g/dL (6.3 - 8.2) Albumin 2.8 g/dL L g/dL (3.5 - 5.0) Chest [id number] by myself. Endotracheal tube is in good position. PICC line in good position. Right-sided pleural effusion is present. Questionable right basilar consolidation-possible atelectasis. Diffuse mild pulmonary edema - Time Spent With Patient Time Spent With Patient: 40 minutes of critical care time spent with patient Physical Exam - Physical Exam General Appearance: other (Pentobarbital coma), No alert EENT: PERRL/EOMI, ET tube Neck: non-tender Respiratory: crackles (Bibasilar), No respiratory distress, No wheezing Cardiac/Chest: normal peripheral pulses, regular rate, rhythm Abdomen: normal bowel sounds, non-tender, soft Male Genitalia: deferred Rectal: deferred Skin: normal color, warm/dry Neuro/Psych: No alert ICD10 Worksheet Patient Problems: Problems Problem Status Onset Intracranial bleeding Acute
[2017-01-08 12:55] LABS: POTASSIUM 4.6 mEq/L (3.5-5.2); SODIUM 153 mEq/L (134-144)
--- NOTE | 2017-01-08 14:34 | ASMTCMCOM ---
CM Note CM Note Notes: "Family Meeting" today with Patient's Darrian and daughter Chaplain Norma and CM present. Family feels as though they are getting their questions answered. They have good family support and trying to manage as best that they can. They are anxious for the sedation to lessen and therapies to begin. Questions about short term disability, letter written for [employer] school. No other needs at this time. Date Signed: 01/08/2017 02:34 PM Electronically Signed By:Alana Kingsley LCSW
[2017-01-08] MEDS: ACETAMINOPHEN 650 MG/20.3 ML UDCUP TUBE PRN (15:15)
[2017-01-08] MEDS ORDERED: LORazepam 2 MG/ML INJ IV ONE (15:45)
[2017-01-08] MEDS: SODIUM Cl 3% 500 ML IV SCH (15:55)
[2017-01-08 18:34] LABS: POTASSIUM 4.8 mEq/L (3.5-5.2); SODIUM 151 mEq/L (134-144)
[2017-01-08] MEDS: PETROLAT,WHT/MIN OIL/SOD CHL 3.5 GM OPHT.OINT EACHEYE PRN (20:42)
[2017-01-08] MEDS ORDERED: NS BOLUS 500 ML (Wide open) IV ONE (21:00)
[2017-01-08] MEDS ORDERED: MANNITOL 25% 12.5 GM/50 ML VIAL IVP PRN (23:00)
[2017-01-08] MEDS: VASOPRESSIN/DEXTROSE 250 ML IV SCH (23:00)
[2017-01-09 00:37] LABS: BASE EXCESS -6.5 mEq/L (-2.5-2.5); BICARBONATE 21 mEq/L (22-26); MEASURED OXYGEN SATURATION 81 % (92-95); PCO2 52 mmHg (34-38); PO2 54 mmHg (65-75); TCO2 23 mEq/L (23-27)
[2017-01-09 00:42] LABS: END TIDAL CO2 30; PATIENT RATE 20; PRESSURE SUPPORT 10; SIMV YES
[2017-01-09 01:20] LABS: BASE EXCESS -6.2 mEq/L (-2.5-2.5); BICARBONATE 22 mEq/L (22-26); END TIDAL CO2 31; MEASURED OXYGEN SATURATION 84 % (92-95); PATIENT RATE 20; PCO2 53 mmHg (34-38); PO2 57 mmHg (65-75); PRESSURE SUPPORT 10; TCO2 23 mEq/L (23-27)
[2017-01-09 01:28] LABS: POTASSIUM 4.6 mEq/L (3.5-5.2); SODIUM 153 mEq/L (134-144)
[2017-01-09] MEDS: NOREPINEPHRINE BITARTRATE 16 MG in NS 250 ML IV SCH ×3 (02:22→20:17)
[2017-01-09] MEDS: PHENYLEPHRINE HCL 50 MG in D5W 250 ML IV SCH ×3 (02:23→07:21)
[2017-01-09] MEDS: niMODipine 30 MG/0.9 ML UDL TUBE SCH ×5 (02:38→17:25)
[2017-01-09] MEDS: TEARS/DEXTRAN 70/HYPROMELLOSE 15 ML OPHT.BTL EACHEYE SCH ×5 (02:46→17:25)
[2017-01-09 03:57] LABS: ABSOLUTE NRBC COUNT 0.15 10^3/uL (0-0.01); ADD MORPH? NO; ADD SCAN? YES; ATYPICAL LYMPHOCYTE FLAG 0 (0-99); FRAGMENT RBC FLAG 0 (0-99); HEMATOCRIT 45.7 % (40.0-51.0); HEMOGLOBIN 14.7 g/dL (13.7-17.5); LIPEMIA HEMOLYSIS FLAG 80 (0-99); MEAN CELL HEMOGLOBIN 30.9 pg (27.9-34.1); MEAN CELL HEMOGLOBIN CONCENTR. 32.2 g/dL (32.4-36.7); MEAN PLATELET VOLUME 10.5 fL (8.7-11.7); NRBC-AUTO% 0.9 % (0.0-0.2); PLATELET CLUMPS FLAG 10 (0-99); PLATELET COUNT 197 10^3/uL (150-400); RED BLOOD CELL COUNT 4.76 10^6/uL (4.40-6.38); RED CELL DISTRIBUTION WIDTH 14.9 % (11.5-15.2)
[2017-01-09] MEDS ORDERED: MANNITOL 25% 12.5 GM/50 ML VIAL IV ONE (04:00)
[2017-01-09] MEDS: ALBUTEROL 200 PUFFS/18 GM MDI IH SCH ×5 (04:01→20:55)
[2017-01-09 04:08] LABS: ALANINE AMINOTRANSFERASE 28 IU/L (21-72); ALBUMIN 2.4 g/dL (3.5-5.0); ALKALINE PHOSPHATASE 113 IU/L (38-126); ANION GAP 16 mEq/L (8-16); ASPARTATE AMINOTRANSFERASE 24 IU/L (17-59); BILIRUBIN,TOTAL 1.6 mg/dL (0.1-1.4); CALCIUM 8.3 mg/dL (8.5-10.4); CARBON DIOXIDE 20 mEq/l (22-31); CHLORIDE 117 mEq/L (97-110); CREATININE 2.1 mg/dL (0.7-1.3); GLOMERULAR FILTRATION RATE 33; GLUCOSE 158 mg/dL (70-100); POTASSIUM 4.7 mEq/L (3.5-5.2); SODIUM 153 mEq/L (134-144); TOTAL PROTEIN 4.7 g/dL (6.3-8.2)
[2017-01-09 04:46] LABS: LEFT SHIFT FLG 300 (0-99)
[2017-01-09] MEDS: HEPARIN 5,000 UNIT/0.5 ML SYR SC SCH ×2 (05:28→15:56)
[2017-01-09] MEDS: SODIUM Cl 3% 500 ML IV SCH ×2 (05:29→10:39)
[2017-01-09 06:13] LABS: ADD DIFF? YES; SCAN POSITIVE
[2017-01-09 06:19] LABS: PLATELET ESTIMATE ADEQUATE (ADEQ); POLYCHROMASIA 1+; TOXIC GRANULATION PRESENT
[2017-01-09 07:38] LABS: BASE EXCESS -6.4 mEq/L (-2.5-2.5); BICARBONATE 20 mEq/L (22-26); MEASURED OXYGEN SATURATION 87 % (92-95); PCO2 47 mmHg (34-38); PO2 59 mmHg (65-75); TCO2 22 mEq/L (23-27)
[2017-01-09 07:41] LABS: O2 CONCENTRATIION 100 % (0-100); P/F RATIO 59 RATIO
[2017-01-09 07:42] LABS: ASSIST CONTROL YES; END TIDAL CO2 29
[2017-01-09] MEDS ORDERED: LIDOCAINE 1% 300 MG/30 ML SDV MISC ONE (07:42)
[2017-01-09] MEDS ORDERED: LIDOCAINE 2% JELLY 5 ML TUBE TP ONE (07:42)
[2017-01-09] MEDS: PENTOBARBITAL SODIUM 1,000 MG in D5W 250 ML IV SCH ×2 (08:33→14:30)
[2017-01-09] MEDS: levETIRAcetam 750 MG in NS 100 ML IV SCH ×2 (08:34→23:28)
[2017-01-09] MEDS ORDERED: FUROSEMIDE 20 MG/2 ML VIAL IVP ONE ×2 (08:34→11:45)
--- NOTE | 2017-01-09 08:41 | PDINTPN ---
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 Responded to mannitol, and have remained low except when pentobarb weaned. TCDs apparently didn't show spasm. Intercerebral pressures are high * Cardiomyopathy: Small regional wall motion abnormality, ?old vs related to ICH. Vitals OK, troponins down * Bradycardia: Intermittent. Associated with transient elevations in ICP * Acute Respiratory failure: Markedly worse. Now on 15 of peep and FiO2 at 100 %. Now hypercarbic. Peak pressures are still low. Chest x-ray shows pulmonary edema and right lower lobe atelectasis. -will perform bronchoscopy today -gentle diuresis * Acute renal failure-creatinine up to 2.1. -will consult Nephrology * WBC count elevated * Nutrition: Dobhoff placed. Have started trickle feeds * Hypernatremia: * Metabolic acidosis: Mild * Hypokalemia: Likely due to diuresis. Improved with replacement Case discussed with Nursing, Neurosurgery, Respiratory therapy and family 45 minutes of critical care time spent with patient Subjective: Sedated and in pentobarbital coma Objective: Vital Signs Temp Pulse Resp BP Pulse Ox 36.8 C 85 24 H 176/97 H 95 01/09/17 08:00 01/09/17 08:01 01/09/17 08:01 01/09/17 08:00 01/09/17 08:01 Laboratory Results 01/09/17 03:45 01/09/17 03:45 01/08/17 01/09/17 01/10/17 05:59 05:59 05:59 Intake Total 3250 3485 Output Total 2547 1738 19 Balance 703 1747 -19 PT 13.2 SEC (12.0-15.0) 01/02/17 10:55 INR 1.01 (0.83-1.16) 01/02/17 10:55 Chest [id number] by myself. Endotracheal tube in good position. Diffuse pulmonary edema is present. There is right lower lobe atelectasis. - Time Spent With Patient Time Spent With Patient: 45 minutes of critical care time spent with patient Physical Exam - Physical Exam General Appearance: other (Sedated), No alert EENT: PERRL/EOMI, ET tube Neck: supple Respiratory: crackles (Bibasilar right greater than left), No respiratory distress Cardiac/Chest: normal peripheral pulses, regular rate, rhythm Abdomen: normal bowel sounds, non-tender, soft Male Genitalia: deferred Rectal: deferred Skin: normal color, warm/dry Extremities: normal inspection Neuro/Psych: No alert ICD10 Worksheet Patient Problems: Problems Problem Status Onset Intracranial bleeding Acute
[2017-01-09] MEDS: PANTOPRAZOLE SODIUM 40 MG VIAL IVP SCH (08:50)
[2017-01-09] MEDS: VASOPRESSIN/DEXTROSE 250 ML IV SCH ×2 (08:50→20:16)
[2017-01-09] MEDS: CHLORHEXIDINE GLUCONATE 15 ML UDL PO SCH ×2 (08:51→23:28)
[2017-01-09] MEDS: BACITRACIN OINTMENT 1 PACKET TP SCH ×2 (08:51→23:27)
[2017-01-09] MEDS: CARBOXYMETHYLCELLULOSE 1% 0.4 ML DROPERETTE EACHEYE SCH ×2 (08:51→23:28)
--- NOTE | 2017-01-09 09:03 | NEUSURGPN ---
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 Given Mannitol this morning with ICP lowering from 40 to 34 continue pentobarb for now bronchoscopy today TCDs today on keppra ventric open at 5 mmhg Na at goal of 153 SBP goal between 140-180 mmhg on nimodipine for vasospasm scd/vivek/sc heparin for dvt prophylaxis please call with neuro changes discussed with Dr Hansen who will see patient this morning Subjective: ICP elevated overnight. Unable to obtain. Patient intubated/sedated. Objective: Intubated. Sedated. Pupils right 4 mm, left 3 mm, min reactive EVD site c/d/i Catheter Insertion Date: 01/02/17 - Physician Discussed Patient with : [facility] Physical Exam - Vitals, I&O, Labs I and O 01/08/17 01/09/17 01/10/17 05:59 05:59 05:59 Intake Total 3250 3485 Output Total 2547 1738 19 Balance 703 1747 -19 Weight 129 kg 129 kg Intake: IV Intake (ml) 577 110 IV Infused (ml) 2583 3037 Norepinephrine Bitartrate 382 585 16 mg In Ns 250 ml @ Per Protocol IV CONT KADEN Rx# :[id number] Pentobarbital Sodium 1, 702 000 mg In 1/2 Ns 250 ml @ As Directed IV CONT KADEN Rx#:[id number] Pentobarbital Sodium 1, 460 585 000 mg In D5w 250 ml @ As Directed IV CONT KADEN Rx# :[id number] Phenylephrine HCl 50 mg 703 947 In D5w 250 ml @ Titrate IV CONT KADEN Rx#: [id number] SODIUM Cl 3% 500 ml @ 30 404 mls/hr IV CONT KADEN Rx#: [id number] Vasopressin/Dextrose 250 145 ml @ Titrate IV CONT KADEN Rx#:[id number] Vecuronium Angelica 50 mg 40 In D5w 50 ml @ Per Protocol IV CONT KADEN Rx#: [id number] fentaNYL/NACL 100 ml @ 296 266 Per Protocol IV CONT KADEN Rx#:[id number] levETIRAcetam 750 mg In 105 Ns 100 ml @ 420 mls/hr IV BID KADEN Rx#:[id number] Tube Feeding (ml) 158 Tube Flush (ml) 90 180 Output: Urine (ml) 1765 1435 Catheter 1765 1435 NG Tube Output (ml) 0 Small Bore (5-12 Moldovan) 0 Weighted Right Naris Stomach 12 Moldovan OG Tube Output (ml) 600 150 Large Bore (>12 Moldovan) 600 150 Non-weighted Stomach CSF Drainage Amount 182 153 19 Right Ventriculostomy 1 182 153 19 Other: Output Comment Catheter 3 hours output Number of Voids Catheter 7 3 Number of Stools Catheter 0 0 Vital Signs Temp Pulse Resp BP Pulse Ox 36.8 C 85 24 H 176/97 H 95 01/09/17 08:00 01/09/17 08:01 01/09/17 08:01 01/09/17 08:00 01/09/17 08:01 Laboratory Results 01/09/17 03:45 01/09/17 03:45 ICD10 Worksheet Patient Problems: Problems Problem Status Onset Intracranial bleeding Acute
[2017-01-09] MEDS ORDERED: FUROSEMIDE 20 MG/2 ML VIAL ONE (09:19)
--- NOTE | 2017-01-09 09:20 | GPN ---
[f rep st] PROCEDURE NOTE NAME OF PROCEDURE: Fiberoptic bronchoscopy. INDICATION: Right lower lobe atelectasis, hypoxemia. ANESTHESIA GIVEN: Patient is currently in a pentobarbital coma. He received 1% lidocaine topically. DESCRIPTION OF PROCEDURE: The procedure was performed in the intensive care unit. Continuous pulse ox, EKG and blood pressure monitoring. Please note N95 masks were used throughout the procedure. Al so note, patient is on mechanical ventilation which is by definition a closed system and poses no ris k to airborne pathogens. Bronchoscope was entered through a #8 endotracheal tube. The distal trachea and nikolas were visualiz ed and showed no endobronchial lesion. Normal-appearing mucosa. Bronchoscope entered in the left foster ng. Left upper lobe, lingula, left lower lobe, including subsegments, were subsequently visualized a nd showed no endobronchial lesions and normal-appearing mucosa. Bronchoscope was entered in the righ t lung. Right upper lobe was visualized. It showed no endobronchial lesions and normal-appearing mu cosa. Bronchoscope was entered in the right middle lobe and right lower lobe. These were completely occluded by thick tenacious mucous plugging. This was therapeutically aspirated. Bronchoalveolar l avage was taken in the right lower lobe. This was sent for C and S, AFB, and fungal cultures. The b ronchoscope was then removed. Patient tolerated the procedure well. There were no apparent complica tions. Portable chest x-ray has been called for. /[id number]/MODL
[2017-01-09] MEDS: PHENYLEPHRINE HCL 50 MG in NS 250 ML IV SCH ×2 (10:38→16:23)
[2017-01-09] MEDS ORDERED: ALBUMIN 25% 100 ML IV ONE (12:41)
[2017-01-09] MEDS: CEFEPIME HCL 2 GM in D5W 100 ML IV SCH ×2 (12:45→20:19)
[2017-01-09 12:47] LABS: POTASSIUM 2.9 mEq/L (3.5-5.2); SODIUM 152 mEq/L (134-144)
[2017-01-09] MEDS: POTASSIUM Cl (KCl) 50 ML IV SCH ×2 (13:44→14:20)
[2017-01-09] MEDS ORDERED: CEFEPIME HCL 2 GM in D5W 100 ML IV SCH (14:00)
[2017-01-09 14:25] LABS: BASE EXCESS -4.4 mEq/L (-2.5-2.5); BICARBONATE 21 mEq/L (22-26); MEASURED OXYGEN SATURATION 67 % (92-95); PCO2 43 mmHg (34-38); TCO2 23 mEq/L (23-27)
[2017-01-09 14:31] LABS: ASSIST CONTROL YES; O2 CONCENTRATIION 100 % (0-100); P/F RATIO 38 RATIO
[2017-01-09 14:33] LABS: PO2 38 mmHg (65-75)
[2017-01-09 15:38] LABS: BASE EXCESS -3.8 mEq/L (-2.5-2.5); BICARBONATE 22 mEq/L (22-26); MEASURED OXYGEN SATURATION 68 % (92-95); PCO2 42 mmHg (34-38); TCO2 23 mEq/L (23-27)
[2017-01-09 15:41] LABS: ASSIST CONTROL YES; P/F RATIO 38 RATIO; TOTAL RATE 24
[2017-01-09 15:42] LABS: O2 CONCENTRATIION 100 % (0-100)
[2017-01-09 15:43] LABS: PO2 38 mmHg (65-75)
--- NOTE | 2017-01-09 15:57 | POSTOPPROG ---
Post Op Note Date of Operation: 01/09/17 Surgeon: Kizzy Fraire Pre-op Diagnosis: need for constant BP monitoring, s/p cerebral aneurysm clipping Post-op Diagnosis: need for constant BP monitoring, s/p cerebral aneurysm clipping Indication: lack of arterial line Procedure: arterial line placement with U/S guidance Inf/Abcess present in the surg proc area at time of surgery?: No Depth: Superfical (Skin SQ) EBL: Minimal Total fluids administered: none Complications: U/S guidance utilized to identify R radial artery and direct #20 G arrow into artery. Pulsatile flow. Line sutured into place. Good tracing. No complications noted.
[2017-01-09 16:46] LABS: CSF APPEARANCE SL. HAZY (CLEAR); CSF COLOR PINK (COLORLESS)
--- NOTE | 2017-01-09 17:05 | ECHO ---
[email or web address] [address] [address] Main: [phone] Fax: Transthoracic Echocardiogram Name: JOHN CHEEK MR#: [id number] Study Date: 01/09/2017 Study Time: 12:11 PM Date of : 1965 Age: 51 year(s) Height: 182.9 cm (72 in.) Weight: 128.82 kg (284 lb.) BSA: 2.47 m2 Gender: Male Examination: Echo Indication: Acute Pulmonary Edema Image Quality: Contrast: Requested by: Trevor Castellon BP: 161 mmHg/95 mmHg Heart Rate: Rhythm: Indication: Acute Pulmonary Edema Procedure Staff General Production Manager: Valentin Montoya Reading Physician: Patrice Worley Requesting Provider: Conclusions: Normal size left ventricle. Moderate concentric LV hypertrophy. Global hypercontractility of the left ventricle. EF is 70 %. There is pericardial fat. There are no significant valvular abnormalities. Measurements: Chambers Valvular Assessment AV/MV Valvular Assessment TV/PV Normal Normal Normal Name Value Range Name Value Range Name Value Range Ao Miriam (MM): 3.4 cm (2.2 cm-3.7 AV Vmax: 1.89 m/s (1 m/s-1.7 PV Vmax: 0.95 m/s (0.6 m/s-0.9 cm) m/s) m/s) IVSd (2D): 1.6 cm (0.6 cm-1.1 AV maxP mmHg ( - ) PV PGmax: 4 mmHg ( - ) cm) LVOT Vmax: 1.41 m/s (0.7 m/s-1.1 LVDd (2D): 4.6 cm (4.2 cm-5.9 m/s) cm) MV E Vmax: 0.62 m/s ( - ) LVDs (2D): 1.4 cm (2.1 cm-4 MV A Vmax: 0.83 m/s ( - ) cm) MV E/A: 0.75 ( - ) LVPWd (2D): 1.4 cm (0.6 cm-1 cm) LVEF (2D): 70 (>=54 %) Continued Measurements: Chambers Name Value LADs Lon.7 cm LA Area: 13.0 cm2 LA Volume: 29 ml Patient: JOHN CHEEK Study Date: 01/09/2017 Page 1 of 2 12:11 PM LA Volume Index: 11.7 ml/m2 Findings: Left Ventricle: Normal size left ventricle. Moderate concentric LV hypertrophy. Global hypercontractility of the left ventricle. EF is 70 %. Diastolic dysfunction is present. . Right Ventricle: Normal size right ventricle. Left Atrium: The left atrium is normal in size. Right Atrium: The right atrium is normal in size. Mitral Valve: The mitral valve is normal in appearance and function. Trivial mitral valve regurgitation. Aortic Valve: The aortic valve is normal in appearance and function. The aortic valve is tri-leaflet. Tricuspid Valve: The tricuspid valve is normal in appearance and function. Trivial tricuspid valve regurgitation. Pulmonic Valve: The pulmonic valve is normal in appearance and function. Aorta: The aorta is normal. Pericardium: No pericardial effusion. There is pericardial fat. Exam Comments: Compared to the previous exam of 01/02/2017 the LV is now hyperdynamic.. (No Signature Object) Patient: JOHN CHEEK Study Date: 01/09/2017 Page 2 of 2 12:11 PM [id number]
[2017-01-09 17:08] LABS: PROTEIN, CSF 26 mg/dL (12-60)
[2017-01-09 17:19] LABS: BASE EXCESS -3.8 mEq/L (-2.5-2.5); BICARBONATE 22 mEq/L (22-26); MEASURED OXYGEN SATURATION 63 % (92-95); PCO2 45 mmHg (34-38); TCO2 24 mEq/L (23-27)
[2017-01-09 17:22] LABS: END TIDAL CO2 26; O2 CONCENTRATIION 100 % (0-100); P/F RATIO 36 RATIO; TOTAL RATE 24
[2017-01-09 17:45] VITALS: RESP 26
[2017-01-09] MEDS ORDERED: methylPREDNISolone SOD SUCC 125 MG/2 ML VIAL IVP SCH (18:00)
[2017-01-09 18:07] LABS: CSF SUPERNATANT COLORLESS (COLORLESS); WBC, CSF 3 /mm3 (0-5)
[2017-01-09 18:16] LABS: ASSIST CONTROL YES; BASE EXCESS -3.8 mEq/L (-2.5-2.5); BICARBONATE 22 mEq/L (22-26); MEASURED OXYGEN SATURATION 65 % (92-95); PCO2 44 mmHg (34-38); TCO2 23 mEq/L (23-27)
[2017-01-09 18:17] LABS: I-TIME 0.8 SECS; O2 CONCENTRATIION 100 % (0-100); P/F RATIO 38 RATIO; PIP 20
[2017-01-09 18:18] LABS: PO2 38 mmHg (65-75)
--- NOTE | 2017-01-09 18:44 | PDINTPN ---
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 Responded to mannitol, and have remained low except when pentobarb weaned. TCDs apparently didn't show spasm. Intercerebral pressures are extremely high. Query if patient may have had large stroke given his poor oxygenation. Pupils are now fixed and dilated. -will discontinue pentobarbital * Cardiomyopathy: Small regional wall motion abnormality, ?old vs related to ICH. Vitals OK, troponins down * Bradycardia: Intermittent. Associated with transient elevations in ICP * Acute Respiratory failure: Markedly worse. Likely ARDS physiology. Unable to oxygenate despite best efforts. * Acute renal failure-creatinine up to 2.1. * WBC count elevated * Nutrition: Dobhoff placed. Have started trickle feeds * Hypernatremia: * Metabolic acidosis: Mild * Hypokalemia: Likely due to diuresis. Improved with replacement Case discussed extensively with Respiratory therapy, nursing and Dr. Billy Hansen. I had a long discussion with the patient's and daughter. I explained to him his extremely poor prognosis, and the fact that he will will likely despite our best efforts. At this time, she wishes to withdrawal support. I explained that, because he is in a pentobarbital coma, that we would not be able to extubate him. However, we can discontinue all other medications and making Ms. comfortable as possible. We will make him a do not resuscitate and abide by her wishes. Subjective: Coma Objective: Vital Signs Temp Pulse Resp BP Pulse Ox 37.0 C 98 26 H 145/75 H 67 L 01/09/17 18:10 01/09/17 18:10 01/09/17 18:10 01/09/17 18:10 01/09/17 18:10 Microbiology 01/09/17 16:00 Gram Stain - Final Cerebral Spinal Fluid 01/09/17 09:08 Mycobacterial Smear (EMILEE) - Final Bronchial Clements - Right Lower Lobe 01/09/17 09:08 Gram Stain - Final Lung - Right Lower Lobe Laboratory Results 01/09/17 03:45 01/09/17 12:15 01/08/17 01/09/17 01/10/17 05:59 05:59 05:59 Intake Total 3250 3485 2589 Output Total 2547 1738 4209 Balance 703 1747 -1620 PT 13.2 SEC (12.0-15.0) 01/02/17 10:55 INR 1.01 (0.83-1.16) 01/02/17 10:55 Physical Exam - Physical Exam General Appearance: other (Coma), No alert EENT: other (Pupils fixed and dilated) Neck: supple Respiratory: crackles (Diffuse), No normal breath sounds Cardiac/Chest: normal peripheral pulses, regular rate, rhythm Abdomen: normal bowel sounds, non-tender, soft Male Genitalia: deferred Rectal: deferred Skin: normal color, warm/dry Extremities: swelling ICD10 Worksheet Patient Problems: Problems Problem Status Onset Intracranial bleeding Acute
[2017-01-09 21:17] LABS: PO2 36 mmHg (65-75)
--- NOTE | 2017-01-09 22:08 | GCON ---
[f rep st] CONSULTATION NEPHROLOGY CONSULTATION DATE OF CONSULTATION: 01/09/2017 REASON FOR CONSULTATION: I have been asked to evaluate the patient regarding his chronic renal failu re HISTORY OF PRESENT ILLNESS: He is a 51-year-old gentleman with a history of chronic renal failure pr esumed secondary to hypertension. He is followed as an outpatient by my partner, Dr. Gabo Garcia, and his baseline creatinine ranges between 1.5 and 2, depending on his volume status and diuretic dosing . He was unfortunately admitted 1 week ago with a subarachnoid hemorrhage. 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 He remains ventilated on multiple infusions. His creatinine on admission was 1.7 and did decrease to as low as 1.4 as recently as the . Yesterday, it was 1.6. Yesterday evening, he developed h ypotension with increased pressor requirements. His intracranial pressure, which had been around 30, increased to 40. This was treated with mannitol and phenobarbital. This morning, his creatinine wa s 2.1. He did receive a dose of Lasix earlier today and has made approximately 2.5 L of urine in the past several hours. His central venous pressure earlier this morning was between 5 and 10, but has now increased to approximately 11 following a dose of IV albumin. His intracranial pressure currentl y is in the high-30s. His oxygen requirements have been increasing and chest x-rays demonstrate pulm onary edema despite his decreased central venous pressure. An echocardiogram performed at bedside [facility] today demonstrated nearly complete collapse of his left ventricle, consistent with volume deple tion. PAST MEDICAL HISTORY: 1. Chronic renal failure, as outlined above. 2. Hypertensive cardiomyopathy. 3. Atrial fibrillation, previously on anticoagulation. 4. Longstanding hypertension with episodes of accelerated hypertension and acute renal failure. 5. Gout. 6. Osteoarthritis. 7. Secondary hyperparathyroidism. PAST SURGICAL HISTORY: Ventriculostomy and vertebral artery pseudoaneurysm embolization this admissi on. ALLERGIES: No known drug allergies. CURRENT MEDICATIONS: Cefepime 2 g IV q.8 hours, heparin 5000 units subcutaneously q.8 hours, Keppra 750 mg twice daily, nimodipine 60 mg every 4 hours, Protonix 40 mg IV daily, multiple vasopressors as needed, and pentobarbital. SOCIAL HISTORY: He is a former smoker. He is with 4 children. FAMILY HISTORY: Positive for hypertension in both parents. His mother has some extent of chronic ki dney disease as well. REVIEW OF SYSTEMS: Not obtainable due to the patient's intubated and sedated status. PHYSICAL EXAM: GENERAL: He is intubated and sedated. VITAL SIGNS: Blood pressure is 137/84, heart rate is 83, oxygenation is 87% on 100% FiO2. Central venous pressure is 10. Intracranial pressure is 36. HEENT: Pupils are sluggish. Sclerae are anicteric. Oral mucosa is moist. Oropharynx is ob scured by an endotracheal tube. NECK: Supple without JVD or lymphadenopathy. There are no carotid bruits. LUNGS: Coarse breath sounds bilaterally. HEART: Regular rate and rhythm without murmurs, gallops, rubs. ABDOMEN: Quiet, but soft and nontender. I do not appreciate hepatosplenomegaly, mas ses, or bruits. EXTREMITIES: He does have dependent edema, as well as pedal edema. His feet are wa rm and appear well-perfused, though I cannot definitively appreciate pedal pulses. There are no isch emic appearing lesions on his feet or toes. SKIN: There are no skin rashes. NEUROLOGIC: He is sed ated. : A Fonseca catheter is in place draining copious amounts of clear yellow urine. LABORATORY DATA: This morning, his sodium is 153, potassium 4.7, chloride 117, CO2 20, BUN 29, creat inine 2.1, glucose 158. Calcium 8.3, albumin 2.4, total protein 4.7, total bilirubin 1.6. Brain ez riuretic peptide was 9280. His most recent sodium was 152 with a potassium of 2.9. White blood cell count is 16.9, hemoglobin 14.7, platelets 197. IMPRESSION AND PLAN: 1. Chronic renal failure: Today's creatinine is essentially at the upper end of his typical range, and it appears that his creatinine earlier on admission were atypically low for him. Given his hypot ension overnight, as well as diuresis today, I would not be surprised if his creatinine increases liudmila orrow. This will likely need to be tolerated. Currently, he is responding well to Lasix, and it is felt that additional diuresis would be possibly beneficial in terms of lowering his intracranial pres sure and improving his oxygenation. I would continue to dose IV Lasix on an as-needed basis to maint ain net negative in's and out's. However, I would re-dose IV albumin if his central venous pressure decreases to less than 10. This should minimize the risk of acute renal failure, though I do suspect his creatinine will increase somewhat with diuresis. I did explain to his family today that this wi ll simply need to be tolerated in the short term. 2. Hypoxemia: This is concerning given his central venous pressures and apparent intravascular volu me depletion noted on echocardiogram. I think ongoing attempts at diuresis are reasonable, as he lama s appear total body volume overloaded. I would, however, try to support his intravascular space with as-needed albumin for decreased central venous pressure, as described above. 3. Subarachnoid hemorrhage: His intracranial pressure has increased and he appears to be approachin g the limits of medical management of this. I agree with attempts at diuresis, as outlined above, an d would support his volume status with p.r.n. albumin as described above. 4. Hypernatremia: His sodium has been in the 150s. This is at goal per Neurosurgery. I do anticip ate that this will increase with diuresis, and he may actually require some free water to avoid sever e worsening. Thank you for the consultation. We will follow with you. /[id number]/MODL
[2017-01-10 01:27] VITALS: BP 42/24; PULSE 59; TEMP 97.2; O2SAT 63
--- NOTE | 2017-01-10 10:17 | ASDISCHSUM ---
Discharge Information Plan Status:LTAC Medically Cleared to Leave: Discharge Date:01/10/2017 04:25 AM CM D/C Disposition: ADT D/C Disposition: Projected Discharge Date:01/10/2017 04:25 AM Transportation at D/C:None or Unknown Discharge Delay Reason: Follow-Up Date:01/10/2017 04:25 AM Discharge Slot: Final Diagnosis: Placement Information Patient Contact Information Contact Name:PEDRO Relationship: Address:[facility] [address] Work Phone: City:[place] Alternate Phone: State/Zip Code:[place] [address] Email: Financial Information Financial Class:HMO and PPO Plans Primary Plan Desc:LIZ PPO Primary Plan Number:[id number] Secondary Plan Desc: Secondary Plan Number: Assessment Information [facility] Initial CM Assessment Living Arrangements What is your living Answers: With Spouse arrangement? Who do you live with? Type Of Residence What kind of residence do Answers: House you live in? Discharge Plan Comments Coordination Status Comments Notes: Patient is a 51yo caucasion male who was admitted for a ruptured aneurysm. His daughters are Scot. Patient is and living with his , Darrian. 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 Will await therapy recommendations for d/c planning. CM will follow. Date Signed: 01/03/2017 12:06 PM Electronically Signed By:Jacquelin Jarquin LCSW [facility] CM Progress Note CM Note CM Note Notes: Met with patient's who had questions re: FMLA and disability for patient. Patient will get the FMLA papers from [employer] where her works.She was advised she could bring them to us to get some assistance with getting them filled out and returned to [facility]. Disability was explained to her as a roasterman program she can apply for through social security if the patient were not able to return to work. This option is not one she needs to initiate at this time. Patient was visibly distressed and spoke of how she had lost her first very suddenly. She and the patient have 2 grown daughters and a 3yo son. She is shaken that this medical situation has arisen very suddenly as well. Patient informed of family meetings and what they are for. She was invited to let us know if she is feeling like she wants this support and we will schedule it for her. Spoke with Evelyn Bruno about checking with the patient for more emotional support and touching base about the need for a family meeting on Saturday. CM will follow. Date Signed: 01/04/2017 04:32 PM Electronically Signed By:Jacquelin Jarquin LCSW [facility] Progress Note CM Note CM Note Notes: Patient had a dissecting R vertebral artery, coils x6. He continues to be intubated and sedated. In-pt Rehab following his case. Date Signed: 01/07/2017 02:32 PM Electronically Signed By:Alana Kingsley LCSW [facility] Progress Note CM Note CM Note Notes: "Family Meeting" today with Patient's Darrian and daughter Chaplain Norma and CM present. Family feels as though they are getting their questions answered. They have good family support and trying to manage as best that they can. They are anxious for the sedation to lessen and therapies to begin. Questions about short term disability, letter written for Derek's school. No other needs at this time. Date Signed: 01/08/2017 02:34 PM Electronically Signed By:Alana Kingsley LCSW Intervention Information Intervention Type:*Incorrect Registration Date of Service:01/02/2017 12:19 PM Patient Type:Observation Staff Member:MARITZA Kapoor Dina Hours: Discipline: Severity: Comment:
== END 2017-01-10 04:25 | disposition expired | DRG 20 ==
LOC: OBSVTOIN 06:52 → F2N 06:52
PROVIDERS: ADMIT Neurological Surgery; ATTEND Neurological Surgery
PROC: B31F1ZZ Fluoroscopy of Left Vertebral Artery using Low Osmolar Contrast (ICD-10-PCS; principal; 2017-01-02)
PROC: B31D1ZZ Fluoroscopy of Right Vertebral Artery using Low Osmolar Contrast (ICD-10-PCS; principal; 2017-01-02)
PROC: B3171ZZ Fluoroscopy of Left Internal Carotid Artery using Low Osmolar Contrast (ICD-10-PCS; principal; 2017-01-02)
PROC: 03LP3DZ Occlusion of Right Vertebral Artery with Intraluminal Device, Percutaneous Approach (ICD-10-PCS; principal; 2017-01-02)
PROC: B41FZZZ Fluoroscopy of Right Lower Extremity Arteries (ICD-10-PCS; principal; 2017-01-02)
PROC: B3161ZZ Fluoroscopy of Right Internal Carotid Artery using Low Osmolar Contrast (ICD-10-PCS; principal; 2017-01-02)
PROC: 02HV33Z Insertion of Infusion Device into Superior Vena Cava, Percutaneous Approach (ICD-10-PCS; 2017-01-02)
PROC: 5A1955Z Respiratory Ventilation, Greater than 96 Consecutive Hours (ICD-10-PCS; 2017-01-02)
PROC: 0D9670Z Drainage of Stomach with Drainage Device, Via Natural or Artificial Opening (ICD-10-PCS; 2017-01-02)
PROC: 02HV33Z Insertion of Infusion Device into Superior Vena Cava, Percutaneous Approach (ICD-10-PCS; 2017-01-05)
PROC: 02HV32Z Insertion of Monitoring Device into Superior Vena Cava, Percutaneous Approach (ICD-10-PCS; 2017-01-09)
PROC: 0DH67UZ Insertion of Feeding Device into Stomach, Via Natural or Artificial Opening (ICD-10-PCS; 2017-01-09)
PROC: 3E0G76Z Introduction of Nutritional Substance into Upper GI, Via Natural or Artificial Opening (ICD-10-PCS; 2017-01-09)
PROC: 0B9D8ZX Drainage of Right Middle Lung Lobe, Via Natural or Artificial Opening Endoscopic, Diagnostic (ICD-10-PCS; 2017-01-09)
PROC: 0B9F8ZX Drainage of Right Lower Lung Lobe, Via Natural or Artificial Opening Endoscopic, Diagnostic (ICD-10-PCS; 2017-01-09)
DX: I60.51 Nontraumatic subarachnoid hemorrhage from right vertebral artery (principal); N18.9 Chronic kidney disease, unspecified; I13.10 Hypertensive heart and chronic kidney disease without heart failure, with stage 1 through stage 4 chronic kidney disease, or unspecified chronic kidney disease; I48.0 Paroxysmal atrial fibrillation; N17.9 Acute kidney failure, unspecified; M10.9 Gout, unspecified; N25.81 Secondary hyperparathyroidism of renal origin; E87.0 Hyperosmolality and hypernatremia; I25.2 Old myocardial infarction; I25.10 Atherosclerotic heart disease of native coronary artery without angina pectoris; J96.01 Acute respiratory failure with hypoxia; Z98.2 Presence of cerebrospinal fluid drainage device; I42.9 Cardiomyopathy, unspecified; E87.2 Acidosis; E87.6 Hypokalemia; R00.1 Bradycardia, unspecified; Z66 Do not resuscitate
CPT/HCPCS: 82491-90; C1751; C1760; C1769; C1887; C1894; J0360; J0461; J0692; J1265; J1644; J1940; J1953; J2060; J2150; J2250; J2370; J2515; J2704; J2930; J3010; P9047; Q9967